=== PATIENT | female | born 1945 | race Caucasian/White ===

== ENCOUNTER → 2016-11-30 | Outpatient (CLI) | payer OTHER, BC ==
[~2016-11-30] MED LIST: ASPI-428 PO; CALC-20 PO; CETI10TA84 PO; CHOL100010 PO; COEN100C11 PO; EPP3/2 IM; GLUC500C67 PO; HCTZ PO; IPRA1AER2 INH; IPRASOL4 INH; LEVO100T PO; MAGN250T22 PO; MOME200A INH; PRLSR20 PO; SALS500T10 PO; TRIA1SPR4 NAE
== END | disposition home or self-care (01) ==
LOC: C.LAB1850 16:11
PROVIDERS: ATTEND Internal Medicine Geriatric Medicine
DX: I10 Essential (primary) hypertension (principal); E03.9 Hypothyroidism, unspecified; J44.9 Chronic obstructive pulmonary disease, unspecified; E78.5 Hyperlipidemia, unspecified; R10.31 Right lower quadrant pain; R50.9 Fever, unspecified

== ENCOUNTER → 2017-02-26 | Outpatient (CLI) | payer OTHER, BC ==
--- NOTE | 2017-02-26 12:59 | DIAGNOSTIC IMAGING REPORT ---
CHEST 2 VIEWS ROUTINE CLINICAL HISTORY: COPD. Cough x1 week. COMPARISON STUDY: No previous studies for comparison. FINDINGS: The heart is at the upper limits of normal in size. There is mild elevation of the left hemidiaphragm. Increased left basal markings are likely atelectatic. There is no lobar consolidation. There are no pleural effusions. There is no failure.[ IMPRESSION: Elevation of the left hemidiaphragm with left basilar opacities, likely atelectatic. No evidence of lobar consolidation Electronically signed by: Jean Claude Armenta M.D. 02/26/2017 12:58 PM Dictated Date/Time: 02/26/2017 12:56 PM
== END | disposition home or self-care (01) ==
LOC: C.LABBC 12:13
PROVIDERS: ATTEND Physician Assistant Medical
DX: J20.9 Acute bronchitis, unspecified (principal); J44.9 Chronic obstructive pulmonary disease, unspecified

== ENCOUNTER → 2017-04-03 | Outpatient (CLI) | payer OTHER, BC | END | disposition home or self-care (01) | LOC: C.LABSPEC 17:16 | PROVIDERS: ATTEND Nurse Practitioner Family | DX: R31.0 Gross hematuria (principal) ==

== ENCOUNTER → 2017-04-12 | Outpatient (CLI) | payer OTHER, BC ==
[2017-04-12 17:00] LABS: BLOOD UREA NITROGEN 24 mg/dl (7-18); BUN/CREATININE RATIO 31.3 (10-20); CREATININE 0.78 mg/dl (0.60-1.20)
== END | disposition home or self-care (01) ==
LOC: C.LAB 15:15
PROVIDERS: ATTEND Nurse Practitioner Family
DX: R30.0 Dysuria (principal); R35.0 Frequency of micturition; R31.9 Hematuria, unspecified

== ENCOUNTER → 2017-04-20 | Outpatient (CLI) | payer OTHER, BC ==
[~2017-04-20] MED LIST changes: +MethylPREDNISolone HOME PACK 16 MG TAB PO SCH; +OPTIRAY 320 IV PRN
--- NOTE | 2017-04-20 13:33 | DIAGNOSTIC IMAGING REPORT ---
CT UROGRAM CLINICAL HISTORY: Gross hematuria. COMPARISON STUDY: No priors. TECHNIQUE: Before and following the IV administration of 4. cc of Optiray 320, CT urogram of the abdomen and pelvis is performed from the lung bases to the proximal femora. Images are reviewed in the axial, sagittal, and coronal planes. IV contrast was administered without complication. CT DOSE: 780.88 mGy.cm FINDINGS: Lung bases: The heart is normal in size and without pericardial effusion. Emphysema is noted. A calcified granuloma is seen in the right lower lobe. No airspace consolidation or pleural effusion is identified. There is elevation of left hemidiaphragm with left basilar atelectasis. The right breast is presumed surgically absent. Liver: The contrast-enhanced liver is normal in size, contour, and attenuation. There is minimal central intrahepatic biliary ductal dilatation. The hepatic veins and portal veins are patent. Gallbladder: Surgically absent noting clips in the gallbladder fossa. Spleen: Normal in size and attenuation. Pancreas: Atrophic and grossly unremarkable. Adrenal glands: Unremarkable. Kidneys and ureters: The contrast enhanced kidneys demonstrate cortical atrophy and are without hydronephrosis. There are no renal calculi identified on the unenhanced images. The kidneys enhance and excrete symmetrically. There is no enhancing renal cortical mass lesion identified. There is no evidence of urothelial lesion within the renal pelvis bilaterally or along the course of either ureter. Abdominal vasculature: The abdominal aorta is normal in course and caliber noting moderate atherosclerotic calcification. Bowel: The small bowel and colon are normal in course and caliber. There are scattered colonic diverticula without CT evidence of acute diverticulitis. A small segment of the ventral wall of the transverse colon is contained within an umbilical hernia. The appendix is well-visualized and normal. Peritoneum: There is no intraperitoneal free air or abdominal ascites. Lymphadenopathy: None. Pelvic viscera: The bladder is normal as visualized. The uterus is surgically absent. No adnexal lesion is seen. Skeletal structures: The skeletal structures are osteopenic. There is moderate lumbosacral spondylosis. No lytic or blastic lesion are seen. IMPRESSION: 1. The kidneys demonstrate cortical atrophy and are without hydronephrosis. No renal calculi are identified. 2. There is no enhancing renal cortical mass, and no evidence of urothelial lesion within the renal pelvis bilaterally or along the course of the ureters. 3. The bladder is normal as visualized. 4. Emphysema. 5. Additional changes as above. Electronically signed by: Darrick Dejesus M.D. 04/20/2017 1:32 PM Dictated Date/Time: 04/20/2017 1:24 PM
== END | disposition home or self-care (01) ==
LOC: C.CTS 12:44
PROVIDERS: ATTEND Nurse Practitioner Family
DX: R31.0 Gross hematuria (principal); J43.9 Emphysema, unspecified

== ENCOUNTER → 2017-11-12 | Outpatient (CLI) | payer OTHER, BC ==
[~2017-11-12] MED LIST changes: -MethylPREDNISolone HOME PACK 16 MG TAB PO SCH; -OPTIRAY 320 IV PRN
== END | disposition home or self-care (01) ==
LOC: C.MAMM 13:12
PROVIDERS: ATTEND Internal Medicine Geriatric Medicine
DX: R29.890 Loss of height (principal); M85.852 Other specified disorders of bone density and structure, left thigh; M85.851 Other specified disorders of bone density and structure, right thigh

== ENCOUNTER 2021-01-05 17:01 | Observation (INO) ==
[2021-01-05] MEDS ORDERED: ASPIRIN CHEW 324 MG PO STA (17:30)
[2021-01-05] MEDS ORDERED: NITROGLYCERIN 2% OINTMENT 30GM TUBE EXT STA (17:30)
--- NOTE | 2021-01-05 17:35 | Emergency Department Note ---
History of Present Illness General Chief complaint: Chest Pain Stated complaint: CHEST PAIN Time Seen by Provider: 01/05/21 17:19 Source: patient History of Present Illness Provider complaint: Chest pain Onset (ago): day(s) 1 Location: chest Radiation: extremity (Left arm) Pain Consistency: + intermittent Maximum Pain Intensity: 1 Quality: + other (Heaviness) Relieved By: + rest Exacerbated By: + other (Exertion) Associated symptoms: no cough, no diaphoresis, no fever/chills, no headaches, no nausea/vomiting and no shortness of breath This is a 75-year-old female who presents with chest discomfort intermittently since last night. Patient describes it as a heaviness in the middle of her chest with radiation to her left arm. No associated shortness of breath or diaphoresis or nausea. She states that it started after she was cleaning her house. She got better with rest. Today she had several more episodes starting in the morning. She states that it came on with exertion and got better with r est. She went to her doctor's office who sent her here for further evaluation. She does not have any chest discomfort at this time. She states that when she lies down she feels fine. She did notice that her blood pressure was elevated today over 200 systolic when she had the chest heaviness this morning. She is on antihypertensive medication and has taking them regularly. She denies any leg swelling or pain, fever, cough or cold symptoms, vomiting, abdominal pain, diarrhea or urinary symptoms or known exposure to COVID-19. She does state that her brother had 3 heart attacks under the age of 50 and her father had a heart attack in his 70s. She did have a negative stress test several years ago. Home Medications Medication Instructions Recorded Confirmed Type antiarthritic combination no.2 900 900 mg PO DAILY tab 07/03/19 01/05/21 History mg tablet bimatoprost 0.01 % eye drops 1 drops OP QPM 07/03/19 01/05/21 History calcium carbonate 600 mg calcium 600 mg PO BID tab 07/03/19 01/05/21 History (1,500 mg) tablet cetirizine 10 mg capsule 10 mg PO DAILY cap 07/03/19 01/05/21 History cholecalciferol (vitamin D3) 25 1,000 units PO DAILY 07/03/19 01/05/21 History mcg (1,000 unit) capsule magnesium 250 mg tablet 250 mg PO DAILY 07/03/19 01/05/21 History triamcinolone acetonide 55 mcg 1 sprays INTNAS DAILY 07/03/19 01/05/21 History nasal spray aerosol albuterol sulfate 90 mcg/actuation 2 puffs INH Q6H PRN #18 gm 12/29/19 01/05/21 Rx aerosol inhaler budesonide-formoterol HFA 80 2 puffs INH BID #3 inhaler 02/26/20 01/05/21 Rx mcg-4.5 mcg/actuation aerosol inhaler hydrochlorothiazide 25 mg tablet 25 mg PO DAILY #90 tab 04/21/20 01/05/21 Rx epinephrine 0.3 mg/0.3 mL 0.3 mg IM Q10M PRN #2 ea 05/20/20 01/05/21 Rx injection, auto-injector pravastatin 20 mg tablet 20 mg PO DAILY #90 tab 05/24/20 01/05/21 Rx levothyroxine 100 mcg tablet 100 mcg PO DAILY #90 tab 06/01/20 01/05/21 Rx irbesartan 150 mg tablet 150 mg PO DAILY #90 tab 06/08/20 01/05/21 Rx coenzyme Q10 100 mg capsule 100 mg PO BID cap 07/12/20 01/05/21 History ketoconazole 2 % topical cream 1 appln TOP BID PRN 07/12/20 01/05/21 History ipratropium 0.5 mg-albuterol 3 mg 3 ml INH QID PRN ml 10/06/20 01/05/21 History (2.5 mg base)/3 mL nebulization soln meloxicam 7.5 mg tablet 7.5 mg PO DAILY PRN #20 tab 10/06/20 01/05/21 Rx omeprazole 20 mg capsule,delayed 20 mg PO DAILY #90 cap 10/25/20 01/05/21 Rx release Allergies Allergy/AdvReac Type Severity Reaction Status Date / Time hornet venom Allergy Severe ANAPHYLAXIS Verified 01/05/21 15:19 nalbuphine Allergy Severe "CAN'T Verified 01/05/21 15:19 BREATH" venom-honey bee Allergy Severe Anaphylaxis Verified 01/05/21 15:19 amoxicillin Allergy Intermediate VASCULITIS Verified 01/05/21 15:19 ampicillin Allergy Intermediate VASCULITIS Verified 01/05/21 15:19 clavulanic acid Allergy Intermediate VASCULITIS Verified 01/05/21 15:19 LEGS Iodinated Contrast Media Allergy Intermediate Hives Verified 01/05/21 15:19 Penicillins Allergy Intermediate VASCULITIS Verified 01/05/21 15:19 LEGS, AMOXIL-RASH latex Allergy Rash Unverified 01/05/21 20:09 Past Med/Surg History Medical History (Updated 01/05/21 @ 22:49 by Marc Peacock MD) Allergic rhinitis Asthma Dyslipidemia Generalized osteoarthritis GERD (gastroesophageal reflux disease) Glaucoma Headache, migraine History of paroxysmal supraventricular tachycardia HTN (hypertension) Hx of malignant neoplasm of female breast Hypothyroidism Osteoporosis 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 PFTs (04/11) demonstrated moderate restriction without improvement after bronchodilators Scoliosis Urinary incontinence Surgical History History of arthroscopy of knee with lysis of adhesions History of cholecystectomy 1990s History of hysterectomy History of hysterectomy with bilateral oophorectomy for uterine prolapse, concurrent pelvic floor repair History of mastectomy modified radical mastectomy right breast History of Mohs micrographic surgery for skin cancer nose History of tonsillectomy and adenoidectomy History of tubal ligation Family History Grandmother (Maternal) Breast cancer Father Myocardial infarction Coronary heart disease Cardiac disorder Cancer Brother Myocardial infarction Deep vein thrombosis Cardiac disorder Hypertension Mother Coronary heart disease Cardiac disorder Hypertension Cancer Denies family history of Ovarian cancer Prostate cancer Lung cancer Colorectal cancer Stroke Social History Smoking Status: Never smoker Second Hand Exposure: No; Hx Alcohol Use: Yes Hx Substance Use: No Preferred Language: Nigerian Communication Ability: Effective Visual Impairment: Limited Hearing Ability: Normal Etcher Enameling Required: No Beliefs That Will Affect Care: None marital status: Current Living Situation: Spouse and Family Current Living Situation Comment: Lives with and grandson current occupational status: retired Feels Safe at Home: Yes Childhood Exposure to Second-Hand Smoke: Yes caffeine: Yes Dental Care, Regularly: Yes Physical Activity Frequency: 1-2 Times per Week Seatbelt Use: always Sunscreen Use: Yes Assistive Devices: Glasses Review of Systems See HPI for pertinent positives & negatives. and A total of 10 systems reviewed and were otherwise negative Physical Exam Vital Signs Vital Signs - 24 hr 01/05/21 17:03 01/05/21 17:50 01/05/21 18:46 Temperature 36.1 C L Temperature Source Temporal Artery Scan Pulse Rate 90 71 Pulse Rate [Apical] Respiratory Rate 18 19 Blood Pressure 190/109 H 166/97 H Blood Pressure [Left Arm] Blood Pressure Mean 136 120 Blood Pressure Mean [Left Arm] Pulse Oximetry 95 95 Oxygen Delivery Method Room Air Room Air Sepsis Recent Fever Within 48 Hours No Sepsis New/Unexplained Change in Mental Status N/A Sepsis Action Taken by Nursing No Action Required 01/05/21 18:48 01/05/21 19:00 Temperature Temperature Source Pulse Rate 69 Pulse Rate [Apical] 70 Respiratory Rate 18 17 Blood Pressure Blood Pressure [Left Arm] 166/97 H Blood Pressure Mean Blood Pressure Mean [Left Arm] 120 Pulse Oximetry 96 Oxygen Delivery Method Room Air Sepsis Recent Fever Within 48 Hours Sepsis New/Unexplained Change in Mental Status Sepsis Action Taken by Nursing Constitutional: Vital signs reviewed. Eyes: Pupils are equal round reactive to light. Conjunctiva are noninjected. ENT: Pharynx is clear without erythema or exudate. Mucous membranes are moist. Neck supple without meningeal signs. Respiratory: Clear to auscultation bilaterally. Breath sounds are equal bilaterally. Cardiovascular: Regular rate and rhythm. No rubs or gallops. GI: Soft, nondistended and nontender. Bowel sounds are present. Musculoskeletal: No peripheral edema. No lower extremity tenderness. Integumentary: No cyanosis. or jaundice. Neurological: The patient is awake and alert. No focal deficits. Psychiatric: Normal affect. Not anxious appearing. Course Administered Medications Discontinued Medications Aspirin (Aspirin Chew 324 Mg) 324 mg PO NOW STA Stop: 01/05/21 17:31 Last Admin: 01/05/21 17:57 Dose: 324 mg Documented by: [id number] Nitroglycerin (Nitroglycerin 2% Ointment 30gm Tube) 0.5 inch EXT NOW STA Stop: 01/05/21 17:31 Last Admin: 01/05/21 17:58 Dose: 0.5 inch Documented by: [id number] Medical Decision Making Differential Diagnosis Unstable angina, [place], pleurisy, pneumonia, GERD Medical Records Attestation: I reviewed the patient's medical records. I did perform a limited focused review of portions of the patient's old chart on the electronic medical record. The patient was seen by her primary care provider earlier today and sent here for evaluation of exertional chest pain. Home Medications Current Medication List: was personally reviewed by me Laboratory Data Attestation: I reviewed the patient's lab results. Result diagrams: 01/05/21 17:35 01/05/21 17:35 Lab Results 01/05/21 01/05/21 01/05/21 Range/Units 17:35 17:35 17:35 WBC 5.54 (4.8-10.8) K/uL RBC 4.74 (4.2-5.4) M/uL Hgb 13.6 (12.0-16.0) g/dL Hct 41.7 (37-47) % MCV 88.0 (80-100) fL MCH 28.7 (25-34) pg MCHC 32.6 (32-36) g/dL RDW Std Deviation 45.5 (36.4-46.3) fL RDW Coeff of Patrice 14.1 (11.5-14.5) % Plt Count 236 (130-400) K/uL MPV 9.9 (7.4-10.4) fL Immature Gran % (Auto) 0.2 % Neut % (Auto) 66.2 % Lymph % (Auto) 20.8 % [place] % (Auto) 9.4 % Eos % (Auto) 2.9 % Baso % (Auto) 0.5 % Neut # (Auto) 3.67 (1.4-6.5) K/uL Lymph # (Auto) 1.15 L (1.2-3.4) K/uL [place] # (Auto) 0.52 (0.11-0.59) K/uL Eos # (Auto) 0.16 (0-0.5) K/uL Baso # (Auto) 0.03 (0-0.2) K/uL Immature Gran # (Auto) 0.01 (0.00-0.02) K/uL PT 10.3 (9.0-12.0) Seconds INR 1.0 (0.9-1.1) APTT 26.9 (21.0-31.0) Seconds PTT Ratio 1.0 Sodium 137 (136-145) mmol/L Potassium 3.6 (3.5-5.1) mmol/L Chloride 104 (98-107) mmol/L Carbon Dioxide 29 (21-32) mmol/L Anion Gap 4.0 (3-11) BUN 19 H (7-18) mg/dl Creatinine 0.82 (0.6-1.2) mg/dl Est Cr Clr Drug Dosing 59.6 ml/min Est GFR ( Amer) 80.0 Est GFR (Non-Af Amer) 69.0 BUN/Creatinine Ratio 22.8 H (10-20) Glucose 109 H (70-99) mg/dl Calcium 9.1 (8.5-10.1) mg/dl Total Bilirubin 0.3 (0.2-1) mg/dl AST 15 (15-37) U/L ALT 34 (12-78) U/L Alkaline Phosphatase 84 (45-117) U/L Troponin I < 0.015 (0-0.045) ng/ml Total Protein 7.7 (6.4-8.2) gm/dl Albumin 3.6 (3.4-5.0) gm/dl Globulin 4.1 H (2.5-4.0) gm/dl Albumin/Globulin Ratio 0.9 (0.9-2) COVID-19 Eval Order SARS-CoV-2, RNA, NAAT (NEGATIVE) 01/05/21 01/05/21 Range/Units 19:22 19:22 WBC (4.8-10.8) K/uL RBC (4.2-5.4) M/uL Hgb (12.0-16.0) g/dL Hct (37-47) % MCV (80-100) fL MCH (25-34) pg MCHC (32-36) g/dL RDW Std Deviation (36.4-46.3) fL RDW Coeff of Patrice (11.5-14.5) % Plt Count (130-400) K/uL MPV (7.4-10.4) fL Immature Gran % (Auto) % Neut % (Auto) % Lymph % (Auto) % [place] % (Auto) % Eos % (Auto) % Baso % (Auto) % Neut # (Auto) (1.4-6.5) K/uL Lymph # (Auto) (1.2-3.4) K/uL [place] # (Auto) (0.11-0.59) K/uL Eos # (Auto) (0-0.5) K/uL Baso # (Auto) (0-0.2) K/uL Immature Gran # (Auto) (0.00-0.02) K/uL PT (9.0-12.0) Seconds INR (0.9-1.1) APTT (21.0-31.0) Seconds PTT Ratio Sodium (136-145) mmol/L Potassium (3.5-5.1) mmol/L Chloride (98-107) mmol/L Carbon Dioxide (21-32) mmol/L Anion Gap (3-11) BUN (7-18) mg/dl Creatinine (0.6-1.2) mg/dl Est Cr Clr Drug Dosing ml/min Est GFR ( Amer) Est GFR (Non-Af Amer) BUN/Creatinine Ratio (10-20) Glucose (70-99) mg/dl Calcium (8.5-10.1) mg/dl Total Bilirubin (0.2-1) mg/dl AST (15-37) U/L ALT (12-78) U/L Alkaline Phosphatase (45-117) U/L Troponin I (0-0.045) ng/ml Total Protein (6.4-8.2) gm/dl Albumin (3.4-5.0) gm/dl Globulin (2.5-4.0) gm/dl Albumin/Globulin Ratio (0.9-2) COVID-19 Eval Order Covid19 [facility] SARS-CoV-2, RNA, NAAT NEGATIVE (NEGATIVE) Imaging Data Radiologist's Impression: XR chest 1V portable HISTORY: Atypical Chest Pain COMPARISON: Chest 02/26/2017. FINDINGS: Chronic elevation of the left hemidiaphragm, unchanged. No focal lung consolidations to suggest pneumonia. No evidence for pulmonary edema. The cardiac silhouette remains mildly enlarged. No pleural effusions. No pneumothorax. IMPRESSION: 1. No change in the chronic elevation of the left hemidiaphragm and mild cardiomegaly. 2. No acute process within the chest. ACT 112: Negative or not required by law. Electronically signed by: Jonas Hall M.D. 01/05/2021 5:52 PM ECG Data Attestation: I personally reviewed and interpreted this ECG as follows: Indication: + chest pain Rate (beats per minute): 69 Rhythm: + normal sinus ECG [place]: + Normal ECG ST segments: no ST elevation ECG Findings: + Other (Motion artifact in lead V5); no PVCs Comparison ECG Date: from (July 17, 2015) Change: no significant change MDM Narrative I did evaluate the patient as noted above. The patient is presenting with exertional chest pain since yesterday. She is currently chest pain-free. IV access was established. I did treat her with nitroglycerin paste as well as aspirin. I did place an order for continuous cardiac monitoring. The monitor showed normal sinus rhythm at a rate of 68 bpm. I did order and personally review the patient's 12-lead EKG as described above. She has no acute ischemic changes. I did order and personally reviewed the images of the patient's chest x-ray as described above. There is no evidence of acute abnormality. I did order and review the patient's blood work as noted in the electronic medical record. CBC and electrolytes are unremarkable. Troponin is negative. I did discuss the test results with the patient. I did recommend hospitalization for repeat cardiac biomarkers and possible stress testing tomorrow. I did discuss the case with the hospitalist and insurance case manager.Covid screening is negative. Impression & Plan Chest pain, exertional, Poorly-controlled hypertension Discharge Plan Visit Data Chief Complaint: Chest Pain Stated Complaint: CHEST PAIN ED Provider: Marc Peacock Discharge Problem: Chest pain, exertional, Poorly-controlled hypertension Patient Disposition: Admitted As Inpatient Discharge Instructions Interventions: ED Discharge Assessment Last Done: 01/05/21 21:18
[2021-01-05 17:49] LABS: Basophils # (auto) 0.03 K/uL (0-0.2); Basophils % (auto) 0.5 %; Eosinophils # (auto) 0.16 K/uL (0-0.5); Eosinophils % (auto) 2.9 %; Hematocrit (blood only) 41.7 % (37-47); Hemoglobin 13.6 g/dL (12.0-16.0); Immature Granulocytes # (auto) 0.01 K/uL (0.00-0.02); Immature Granulocytes % (auto) 0.2 %; Lymphocytes # (auto) 1.15 K/uL (1.2-3.4); Lymphocytes % (auto) 20.8 %; Mean Corpuscular Hemoglobin 28.7 pg (25-34); Mean Corpuscular Hgb Conc 32.6 g/dL (32-36); Mean Platelet Volume 9.9 fL (7.4-10.4); Monocytes # (auto) 0.52 K/uL (0.11-0.59); Monocytes % (auto) 9.4 %; Neutrophils # (auto) 3.67 K/uL (1.4-6.5); Neutrophils % (auto) 66.2 %; Platelet Count 236 K/uL (130-400); RDW Coefficient of Variation 14.1 % (11.5-14.5); RDW Standard Deviation 45.5 fL (36.4-46.3); Red Blood Count 4.74 M/uL (4.2-5.4); White Blood Count 5.54 K/uL (4.8-10.8)
--- NOTE | 2021-01-05 17:53 | XRay Report ---
XR chest 1V portable HISTORY: Atypical Chest Pain COMPARISON: Chest 02/26/2017. FINDINGS: Chronic elevation of the left hemidiaphragm, unchanged. No focal lung consolidations to sug gest pneumonia. No evidence for pulmonary edema. The cardiac silhouette remains mildly enlarged. No p leural effusions. No pneumothorax. IMPRESSION: 1. No change in the chronic elevation of the left hemidiaphragm and mild cardiomegaly. 2. No acute process within the chest. ACT 112: Negative or not required by law. Electronically signed by: Jonas Hall M.D. 01/05/2021 5:52 PM
[2021-01-05 18:14] LABS: Alanine Aminotransferase 34 U/L (12-78); Albumin Level 3.6 gm/dl (3.4-5.0); Aspartate Aminotransferase 15 U/L (15-37); BUN Creatinine Ratio 22.8 (10-20); Blood Urea Nitrogen 19 mg/dl (7-18); Calcium 9.1 mg/dl (8.5-10.1); Carbon Dioxide 29 mmol/L (21-32); Chloride 104 mmol/L (98-107); Creatinine Clr Calc Pharmacy 59.6 ml/min; Glucose 109 mg/dl (70-99); Potassium 3.6 mmol/L (3.5-5.1); Sodium 137 mmol/L (136-145)
[2021-01-05 18:18] LABS: Albumin Globulin Ratio 0.9 (0.9-2); Alkaline Phosphatase 84 U/L (45-117); Bilirubin,Total 0.3 mg/dl (0.2-1); Globulin 4.1 gm/dl (2.5-4.0); Total Protein 7.7 gm/dl (6.4-8.2); Troponin I < 0.015 ng/ml (0-0.045)
[2021-01-05 19:09] LABS: Partial Thromboplastin Time 26.9 Seconds (21.0-31.0); Prothrombin Time 10.3 Seconds (9.0-12.0)
--- NOTE | 2021-01-05 20:09 | History & Physical Report ---
Date of Service January 05, 2021 Assessment & Plan (1) Chest pain: 75yo female with history of HTN, HLP, family history of premature CAD presenting with exertional chest discomfort x 2 days. Troponin x 1 negative, EKG with nonspecific ST flattening -Observation to medical with telemetry -Trend troponin q 8 hours x 3 -ASA 81mg po daily -Nitro PRN chest pain -Exercise stress test ordered for AM - patient states she has done the exercise tests in the past and thinks she will be able to walk without difficulty Present on Admission?: Yes (2) HTN (hypertension): Blood pressure elevated on arrival, has since improved however still high at 166/97 -Continue Irbesartan 150mg po daily -Continue HCTZ 25mg po daily -Continue to monitor Present on Admission?: Yes (3) Dyslipidemia: Chronic -Check fasting lipid panel in AM -Continue Pravastatin 20mg po daily -Continue CoQ10 Present on Admission?: Yes (4) Restrictive lung disease: Patient with left diaphragm paralysis following XRT for breast cancer in the past. No respiratory complaints. Breathing comfortably on room air -Continue Ipratropium/Albuterol -Continue Budesonide-Formoterol -Continue Albuterol Present on Admission?: Yes (5) Hypothyroidism: Chronic. Stable -Continue Synthyroid 100mcg po daily Present on Admission?: Yes (6) GERD (gastroesophageal reflux disease): Chronic. Stable. Patient with hiatal hernia as well. Presently with no complaints re: this issue -Continue Omeprazole 20mg po daily F/E/N - Heplock. Monitor electrolytes and replete as needed, continue home Vitamin D, Heart healthy diet as tolerated Ppx - Low risk for DVT - encourage ambulation Code - Full Dispo - Observation to medical with telemetry Present on Admission?: Yes History of Present Illness Chief Complaint: chest pain Primary Care Provider: Ariel Mason DO Luciana Weiner is a 75yo female presenting with exertional chest discomfort. Discomfort started yesterday afternoon after patient was vacuuming her house. She had left sided chest pressure 3/10 in severity with radiation down her left arm. She sat down to rest and her pain resolved after appx 10 minutes. This morning she woke up feeling well and decided to check her blood pressure which was found to be 200 systolic. She took her blood pressure medications early and after a few hours her blood pressure improved to 116/70. She had recurrence of her chest discomfort later in the day described as intermittent left sided chest heaviness with radiation down the left arm that occurred with exertion. Pain 4/10 in severity. No palpitations, diaphoresis, dizziness associate with discomfort. Presently chest pain free. She has family history of premature CAD -[place] x 2 in brother in his 40's as well as HTN/HLP. She reports having a stress test several years ago which was unremarkable. No prior cardiac catheterizations or stents. ER Course: ASA, Nitro Allergies Allergy/AdvReac Type Severity Reaction Status Date / Time hornet venom Allergy Severe ANAPHYLAXIS Verified 01/05/21 15:19 nalbuphine Allergy Severe "CAN'T Verified 01/05/21 15:19 BREATH" venom-honey bee Allergy Severe Anaphylaxis Verified 01/05/21 15:19 amoxicillin Allergy Intermediate VASCULITIS Verified 01/05/21 15:19 ampicillin Allergy Intermediate VASCULITIS Verified 01/05/21 15:19 clavulanic acid Allergy Intermediate VASCULITIS Verified 01/05/21 15:19 LEGS Iodinated Contrast Media Allergy Intermediate Hives Verified 01/05/21 15:19 Penicillins Allergy Intermediate VASCULITIS Verified 01/05/21 15:19 LEGS, AMOXIL-RASH Home Medications Medication Instructions Recorded Confirmed Type antiarthritic combination no.2 900 mg PO tab 07/03/19 01/05/21 History mg tablet bimatoprost 0.01 % eye drops 1 drops OP QPM 07/03/19 01/05/21 History calcium carbonate 600 mg calcium 600 mg PO BID tab 07/03/19 01/05/21 History (1,500 mg) tablet cetirizine 10 mg capsule 10 mg PO DAILY cap 07/03/19 01/05/21 History cholecalciferol (vitamin D3) 25 1,000 units PO DAILY 07/03/19 01/05/21 History mcg (1,000 unit) capsule magnesium 250 mg tablet 250 mg PO DAILY 07/03/19 01/05/21 History triamcinolone acetonide 55 mcg 1 sprays INTNAS DAILY 07/03/19 01/05/21 History nasal spray aerosol albuterol sulfate 90 mcg/actuation 2 puffs INH Q6H PRN #18 gm 12/29/19 01/05/21 Rx aerosol inhaler budesonide-formoterol HFA 80 2 puffs INH BID #3 inhaler 02/26/20 01/05/21 Rx mcg-4.5 mcg/actuation aerosol inhaler hydrochlorothiazide 25 mg tablet 25 mg PO DAILY #90 tab 04/21/20 01/05/21 Rx epinephrine 0.3 mg/0.3 mL 0.3 mg IM Q10M PRN #2 ea 05/20/20 01/05/21 Rx injection, auto-injector pravastatin 20 mg tablet 20 mg PO DAILY #90 tab 05/24/20 01/05/21 Rx levothyroxine 100 mcg tablet 100 mcg PO DAILY #90 tab 06/01/20 01/05/21 Rx irbesartan 150 mg tablet 150 mg PO DAILY #90 tab 06/08/20 01/05/21 Rx coenzyme Q10 100 mg capsule 100 mg PO BID cap 07/12/20 01/05/21 History ketoconazole 2 % topical cream 1 appln TOP BID PRN 07/12/20 01/05/21 History ipratropium 0.5 mg-albuterol 3 mg 3 ml INH QID PRN ml 10/06/20 01/05/21 History (2.5 mg base)/3 mL nebulization soln meloxicam 7.5 mg tablet 7.5 mg PO DAILY PRN #20 tab 10/06/20 01/05/21 Rx omeprazole 20 mg capsule,delayed 20 mg PO DAILY #90 cap 10/25/20 01/05/21 Rx release Past Med/Surg History Medical History (Updated 01/05/21 @ 20:06 by Yaneli Harrison DO) Allergic rhinitis Asthma Dyslipidemia Generalized osteoarthritis GERD (gastroesophageal reflux disease) Glaucoma Headache, migraine History of paroxysmal supraventricular tachycardia HTN (hypertension) Hx of malignant neoplasm of female breast Hypothyroidism Osteoporosis 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 PFTs (04/11) demonstrated moderate restriction without improvement after bronchodilators Scoliosis Urinary incontinence Surgical History History of arthroscopy of knee with lysis of adhesions History of cholecystectomy 1990s History of hysterectomy History of hysterectomy with bilateral oophorectomy for uterine prolapse, concurrent pelvic floor repair History of mastectomy modified radical mastectomy right breast History of Mohs micrographic surgery for skin cancer nose History of tonsillectomy and adenoidectomy History of tubal ligation Family History Grandmother (Maternal) Breast cancer Father Myocardial infarction Coronary heart disease Cardiac disorder Cancer Brother Myocardial infarction Deep vein thrombosis Cardiac disorder Hypertension Mother Coronary heart disease Cardiac disorder Hypertension Cancer Denies family history of Ovarian cancer Prostate cancer Lung cancer Colorectal cancer Stroke Social History Smoking Status: Never smoker Second Hand Exposure: No; Hx Alcohol Use: Yes Hx Substance Use: No Preferred Language: Hebrew Communication Ability: Effective Visual Impairment: Limited Hearing Ability: Normal Winder Hand Required: No marital status: Current Living Situation: Spouse current occupational status: retired Feels Safe at Home: Yes Childhood Exposure to Second-Hand Smoke: Yes caffeine: Yes Dental Care, Regularly: Yes Physical Activity Frequency: 1-2 Times per Week Seatbelt Use: always Sunscreen Use: Yes Review of Systems Review of Systems: All systems reviewed & are unremarkable except as noted in HPI & below Patient denies fever, chills, cough, SOB, nausea, vomiting, diarrhea, constipation Physical Exam Physical Exam: General: patient resting comfortably, NAD, non-toxic in appearance, AA&O x 4 Skin: warm, dry, intact, no rashes or lesions HEENT: NC/AT, PERRL, EOMI, anicteric sclera, conjunctiva without injection, external ear normal to inspection and nontender, nares patent, moist mucus membranes, dentition intact, no oropharyngeal lesions, neck supple, trachea midline, no LAD, no thyromegaly, no JVD Heart: +S1/S2, regular, no m/r/g Lungs: equal air entry bilaterally, no rales/rhonchi/wheezes Abd: +BS, soft, NT/ND, no masses/organomegaly/ascites Ext: warm, 2+ pulses in UE/LE bilaterally, no clubbing/cyanosis or edema Neuro: nonfocal, patient AA&O x 4, speech intact, no facial droop, moving all extremities on command with equal strength 5/5 Results & Data Results & Data ([facility]) Vital Signs (Past 12 Hours) Vital Signs Temp Pulse Pulse Resp BP BP Pulse Ox 01/05/21 19:00 69 17 01/05/21 18:48 70 18 166/97 H 96 01/05/21 18:46 71 19 166/97 H 01/05/21 17:50 95 01/05/21 17:03 36.1 C L 90 18 190/109 H 95 Laboratory Results Lab Results 01/05/21 01/05/21 01/05/21 Range/Units 17:35 17:35 17:35 WBC 5.54 (4.8-10.8) K/uL RBC 4.74 (4.2-5.4) M/uL Hgb 13.6 (12.0-16.0) g/dL Hct 41.7 (37-47) % MCV 88.0 (80-100) fL MCH 28.7 (25-34) pg MCHC 32.6 (32-36) g/dL RDW Std Deviation 45.5 (36.4-46.3) fL RDW Coeff of Patrice 14.1 (11.5-14.5) % Plt Count 236 (130-400) K/uL MPV 9.9 (7.4-10.4) fL Immature Gran % (Auto) 0.2 % Neut % (Auto) 66.2 % Lymph % (Auto) 20.8 % Graham % (Auto) 9.4 % Eos % (Auto) 2.9 % Baso % (Auto) 0.5 % Neut # (Auto) 3.67 (1.4-6.5) K/uL Lymph # (Auto) 1.15 L (1.2-3.4) K/uL Graham # (Auto) 0.52 (0.11-0.59) K/uL Eos # (Auto) 0.16 (0-0.5) K/uL Baso # (Auto) 0.03 (0-0.2) K/uL Immature Gran # (Auto) 0.01 (0.00-0.02) K/uL PT 10.3 (9.0-12.0) Seconds INR 1.0 (0.9-1.1) APTT 26.9 (21.0-31.0) Seconds PTT Ratio 1.0 Sodium 137 (136-145) mmol/L Potassium 3.6 (3.5-5.1) mmol/L Chloride 104 (98-107) mmol/L Carbon Dioxide 29 (21-32) mmol/L Anion Gap 4.0 (3-11) BUN 19 H (7-18) mg/dl Creatinine 0.82 (0.6-1.2) mg/dl Est Cr Clr Drug Dosing 59.6 ml/min Est GFR ( Amer) 80.0 Est GFR (Non-Af Amer) 69.0 BUN/Creatinine Ratio 22.8 H (10-20) Glucose 109 H (70-99) mg/dl Calcium 9.1 (8.5-10.1) mg/dl Total Bilirubin 0.3 (0.2-1) mg/dl AST 15 (15-37) U/L ALT 34 (12-78) U/L Alkaline Phosphatase 84 (45-117) U/L Troponin I < 0.015 (0-0.045) ng/ml Total Protein 7.7 (6.4-8.2) gm/dl Albumin 3.6 (3.4-5.0) gm/dl Globulin 4.1 H (2.5-4.0) gm/dl Albumin/Globulin Ratio 0.9 (0.9-2) COVID-19 Eval Order SARS-CoV-2, RNA, NAAT (NEGATIVE) 01/05/21 01/05/21 Range/Units 19:22 19:22 WBC (4.8-10.8) K/uL RBC (4.2-5.4) M/uL Hgb (12.0-16.0) g/dL Hct (37-47) % MCV (80-100) fL MCH (25-34) pg MCHC (32-36) g/dL RDW Std Deviation (36.4-46.3) fL RDW Coeff of Patrice (11.5-14.5) % Plt Count (130-400) K/uL MPV (7.4-10.4) fL Immature Gran % (Auto) % Neut % (Auto) % Lymph % (Auto) % Graham % (Auto) % Eos % (Auto) % Baso % (Auto) % Neut # (Auto) (1.4-6.5) K/uL Lymph # (Auto) (1.2-3.4) K/uL Graham # (Auto) (0.11-0.59) K/uL Eos # (Auto) (0-0.5) K/uL Baso # (Auto) (0-0.2) K/uL Immature Gran # (Auto) (0.00-0.02) K/uL PT (9.0-12.0) Seconds INR (0.9-1.1) APTT (21.0-31.0) Seconds PTT Ratio Sodium (136-145) mmol/L Potassium (3.5-5.1) mmol/L Chloride (98-107) mmol/L Carbon Dioxide (21-32) mmol/L Anion Gap (3-11) BUN (7-18) mg/dl Creatinine (0.6-1.2) mg/dl Est Cr Clr Drug Dosing ml/min Est GFR ( Amer) Est GFR (Non-Af Amer) BUN/Creatinine Ratio (10-20) Glucose (70-99) mg/dl Calcium (8.5-10.1) mg/dl Total Bilirubin (0.2-1) mg/dl AST (15-37) U/L ALT (12-78) U/L Alkaline Phosphatase (45-117) U/L Troponin I (0-0.045) ng/ml Total Protein (6.4-8.2) gm/dl Albumin (3.4-5.0) gm/dl Globulin (2.5-4.0) gm/dl Albumin/Globulin Ratio (0.9-2) COVID-19 Eval Order Covid19 [facility] SARS-CoV-2, RNA, NAAT NEGATIVE (NEGATIVE) Diagnostic Findings Lab Results 01/05/21 01/05/21 01/05/21 Range/Units 17:35 17:35 17:35 WBC 5.54 (4.8-10.8) K/uL RBC 4.74 (4.2-5.4) M/uL Hgb 13.6 (12.0-16.0) g/dL Hct 41.7 (37-47) % MCV 88.0 (80-100) fL MCH 28.7 (25-34) pg MCHC 32.6 (32-36) g/dL RDW Std Deviation 45.5 (36.4-46.3) fL RDW Coeff of Patrice 14.1 (11.5-14.5) % Plt Count 236 (130-400) K/uL MPV 9.9 (7.4-10.4) fL Immature Gran % (Auto) 0.2 % Neut % (Auto) 66.2 % Lymph % (Auto) 20.8 % Graham % (Auto) 9.4 % Eos % (Auto) 2.9 % Baso % (Auto) 0.5 % Neut # (Auto) 3.67 (1.4-6.5) K/uL Lymph # (Auto) 1.15 L (1.2-3.4) K/uL Graham # (Auto) 0.52 (0.11-0.59) K/uL Eos # (Auto) 0.16 (0-0.5) K/uL Baso # (Auto) 0.03 (0-0.2) K/uL Immature Gran # (Auto) 0.01 (0.00-0.02) K/uL PT 10.3 (9.0-12.0) Seconds INR 1.0 (0.9-1.1) APTT 26.9 (21.0-31.0) Seconds PTT Ratio 1.0 Sodium 137 (136-145) mmol/L Potassium 3.6 (3.5-5.1) mmol/L Chloride 104 (98-107) mmol/L Carbon Dioxide 29 (21-32) mmol/L Anion Gap 4.0 (3-11) BUN 19 H (7-18) mg/dl Creatinine 0.82 (0.6-1.2) mg/dl Est Cr Clr Drug Dosing 59.6 ml/min Est GFR ( Amer) 80.0 Est GFR (Non-Af Amer) 69.0 BUN/Creatinine Ratio 22.8 H (10-20) Glucose 109 H (70-99) mg/dl Calcium 9.1 (8.5-10.1) mg/dl Total Bilirubin 0.3 (0.2-1) mg/dl AST 15 (15-37) U/L ALT 34 (12-78) U/L Alkaline Phosphatase 84 (45-117) U/L Troponin I < 0.015 (0-0.045) ng/ml Total Protein 7.7 (6.4-8.2) gm/dl Albumin 3.6 (3.4-5.0) gm/dl Globulin 4.1 H (2.5-4.0) gm/dl Albumin/Globulin Ratio 0.9 (0.9-2) COVID-19 Eval Order SARS-CoV-2, RNA, NAAT (NEGATIVE) 01/05/21 01/05/21 Range/Units 19:22 19:22 WBC (4.8-10.8) K/uL RBC (4.2-5.4) M/uL Hgb (12.0-16.0) g/dL Hct (37-47) % MCV (80-100) fL MCH (25-34) pg MCHC (32-36) g/dL RDW Std Deviation (36.4-46.3) fL RDW Coeff of Patrice (11.5-14.5) % Plt Count (130-400) K/uL MPV (7.4-10.4) fL Immature Gran % (Auto) % Neut % (Auto) % Lymph % (Auto) % Graham % (Auto) % Eos % (Auto) % Baso % (Auto) % Neut # (Auto) (1.4-6.5) K/uL Lymph # (Auto) (1.2-3.4) K/uL Graham # (Auto) (0.11-0.59) K/uL Eos # (Auto) (0-0.5) K/uL Baso # (Auto) (0-0.2) K/uL Immature Gran # (Auto) (0.00-0.02) K/uL PT (9.0-12.0) Seconds INR (0.9-1.1) APTT (21.0-31.0) Seconds PTT Ratio Sodium (136-145) mmol/L Potassium (3.5-5.1) mmol/L Chloride (98-107) mmol/L Carbon Dioxide (21-32) mmol/L Anion Gap (3-11) BUN (7-18) mg/dl Creatinine (0.6-1.2) mg/dl Est Cr Clr Drug Dosing ml/min Est GFR ( Amer) Est GFR (Non-Af Amer) BUN/Creatinine Ratio (10-20) Glucose (70-99) mg/dl Calcium (8.5-10.1) mg/dl Total Bilirubin (0.2-1) mg/dl AST (15-37) U/L ALT (12-78) U/L Alkaline Phosphatase (45-117) U/L Troponin I (0-0.045) ng/ml Total Protein (6.4-8.2) gm/dl Albumin (3.4-5.0) gm/dl Globulin (2.5-4.0) gm/dl Albumin/Globulin Ratio (0.9-2) COVID[facility]19 [facility], RNA, NAAT NEGATIVE (NEGATIVE) ECG Additional Comments: EKG with NSR at 69bpm, normal axis, FF=085, QRS=86, FDl=400, ST flattening Code Status & VTE Plan VTE Prophylaxis Plan VTE Prophylaxis will be ordered: Yes PG Care Time/CCT Total # of Minutes Spent Total Time Spent with Patient: Total time spent is greater than 50% in coordination of care (as documented) at patient's floor/unit and/or counseling patient: Coding Level of Care Code 13573 OBS Care - Level 3 Diagnoses Chest pain R07.9 Chest pain type: unspecified HTN (hypertension) I10 Hypertension type: essential hypertension Dyslipidemia E78.5 Restrictive lung disease J98.4 Hypothyroidism E03.9 Hypothyroidism type: unspecified GERD (gastroesophageal reflux disease) K21.9 Esophagitis presence: esophagitis presence not specified (1) Chest pain Chest pain type: unspecified Qualified Code(s): R07.9 - Chest pain, unspecified (2) HTN (hypertension) Hypertension type: essential hypertension Qualified Code(s): I10 - Essential (primary) hypertension (3) Hypothyroidism Hypothyroidism type: unspecified Qualified Code(s): E03.9 - Hypothyroidism, unspecified (4) GERD (gastroesophageal reflux disease) Esophagitis presence: esophagitis presence not specified Qualified Code(s): K21.9 - Gastro-esophageal reflux disease without esophagitis
[2021-01-05] MEDS ORDERED: ALBUT/IPRATROP 3MG/0.5MG NEB 3 ML VIAL INH PRN (21:53)
[2021-01-05] MEDS ORDERED: NITROGLYCERIN SL 0.4 MG/TAB TAB SL PRN (21:53)
[2021-01-05] MEDS ORDERED: ACETAMINOPHEN 325 MG TAB PO PRN (21:53)
[2021-01-05] MEDS ORDERED: ONDANSETRON INJ 2 MG/ML 2 ML VIAL IV PRN (21:53)
[2021-01-05] MEDS ORDERED: ALBUTEROL HFA 8 GM INHALER INH PRN (22:04)
[2021-01-05 23:13] LABS: Magnesium 2.3 mg/dl (1.8-2.4); Phosphorus 3.2 mg/dl (2.5-4.9); Troponin I < 0.015 ng/ml (0-0.045)
[2021-01-06] MEDS ORDERED: LEVOTHYROXINE SODIUM 100 MCG TABLET PO SCH (06:30)
--- NOTE | 2021-01-06 08:53 | Electrocardiogram Report ---
Test Reason : Blood Pressure : / mmHG Vent. Rate : 069 BPM Atrial Rate : 069 BPM P-R Int : 194 ms QRS Dur : 086 ms QT Int : 416 ms P-R-T Axes : -03 004 049 degrees QTc Int : 445 ms Poor data quality, interpretation may be adversely affected Normal sinus rhythm Normal ECG When compared with ECG of 17-JUL-2015 06:20, Criteria for Septal infarct are no longer Present Confirmed by Thomas Bellamy ([id number]) on 01/06/2021 8:53:28 AM Referred By: Ariel Mason Confirmed By:Thomas Bellamy
[2021-01-06] MEDS ORDERED: PANTOprazole 40 MG TAB PO SCH (09:00)
[2021-01-06] MEDS ORDERED: IRBESARTAN 150 MG TAB PO SCH (09:00)
[2021-01-06] MEDS ORDERED: PRAVASTATIN SOD 20 MG TAB PO SCH (09:00)
[2021-01-06] MEDS ORDERED: FLUTICASONE/VILANTEROL 100/25MCG 14 PUFFS/INHALER INH SCH (09:00)
[2021-01-06] MEDS ORDERED: CHOLECALCIFEROL 1,000 UNITS 25 MCG TAB PO SCH (09:00)
[2021-01-06] MEDS ORDERED: ASPIRIN 81 MG ECTAB PO SCH (09:00)
[2021-01-06] MEDS ORDERED: TRIAMCINOLONE ACET NASAL SPRAY 10.8ML BTL NAE SCH (09:00)
[2021-01-06] MEDS ORDERED: MAGNESIUM OXIDE 400 MG TAB PO SCH (09:00)
[2021-01-06] MEDS ORDERED: hydroCHLOROthiazide 25 MG TAB PO SCH (09:00)
--- NOTE | 2021-01-06 09:16 | Electrocardiogram Report ---
Test Reason : Blood Pressure : / mmHG Vent. Rate : 072 BPM Atrial Rate : 072 BPM P-R Int : 206 ms QRS Dur : 078 ms QT Int : 414 ms P-R-T Axes : 003 008 071 degrees QTc Int : 453 ms Normal sinus rhythm Normal ECG When compared with ECG of 05-JAN-2021 17:09, No significant change Confirmed by Thomas Bellamy ([id number]) on 01/06/2021 9:16:12 AM Referred By: Ariel Mason Confirmed By:Thomas Bellamy
--- NOTE | 2021-01-06 12:11 | XCELERA ---
[id number] \\[id number]
--- NOTE | 2021-01-06 13:53 | Discharge Summary ---
Date of Service January 06, 2021 Admission HPI Per Admitting Provider Luciana Weiner is a 75yo female presenting with exertional chest discomfort. Discomfort started yesterday afternoon after patient was vacuuming her house. She had left sided chest pressure 3/10 in severity with radiation down her left arm. She sat down to rest and her pain resolved after appx 10 minutes. This morning she woke up feeling well and decided to check her blood pressure which was found to be 200 systolic. She took her blood pressure medications early and after a few hours her blood pressure improved to 116/70. She had recurrence of her chest discomfort later in the day described as intermittent left sided chest heaviness with radiation down the left arm that occurred with exertion. Pain 4/10 in severity. No palpitations, diaphoresis, dizziness associate with discomfort. Presently chest pain free. She has family history of premature CAD -CO x 2 in brother in his 40's as well as HTN/HLP. She reports having a stress test several years ago which was unremarkable. No prior cardiac catheterizations or stents. ER Course: ASA, Nitro Principal Diagnosis Chest pain-noncardiac Elevated blood pressure Possible COVID vaccine reaction Discharge Exam Constitutional WD/WN, vitals as above Eyes PERRL, conjunctivae normal, anicteric sclerae ENMT external ear and nose normal, oropharynx normal Neck trachea midline, no thyromegaly Respiratory normal respiratory effort, lungs clear to auscultation Cardiovascular RRR, no murmur, no edema Chest (Breasts) Chest: normal inspection of chest Gastrointestinal (Abdomen) normal bowel sounds, soft, nontender, no hepatosplenomegaly Musculoskeletal Extremities: extremities normal to inspection; no cyanosis and no clubbing Skin no rashes, warm and dry Neurologic moves all extremities and awake; no focal motor deficits Psychiatric A+Ox3, euthymic affect Lymphatic no lymphedema Discharge Data Allergies Allergy/AdvReac Type Severity Reaction Status Date / Time hornet venom Allergy Severe ANAPHYLAXIS Verified 01/05/21 15:19 nalbuphine Allergy Severe "CAN'T Verified 01/05/21 15:19 BREATH" venom-honey bee Allergy Severe Anaphylaxis Verified 01/05/21 15:19 amoxicillin Allergy Intermediate VASCULITIS Verified 01/05/21 15:19 ampicillin Allergy Intermediate VASCULITIS Verified 01/05/21 15:19 clavulanic acid Allergy Intermediate VASCULITIS Verified 01/05/21 15:19 LEGS Iodinated Contrast Media Allergy Intermediate Hives Verified 01/05/21 15:19 Penicillins Allergy Intermediate VASCULITIS Verified 01/05/21 15:19 LEGS, AMOXIL-RASH latex Allergy Rash Unverified 01/05/21 20:09 Consultations 01/05/21 19:10 ED Decision to Admit Stat Ordered Studies CXR Stress ECHO Hospital Course (1) Chest pain: 75yo female with history of HTN, HLP, family history of premature CAD presenting with exertional chest discomfort the day prior to admission that has since resolved ECG normal, serial troponin neg x 3 Stress ECHO negative BPs under better control -see below for plan No events on tele Possible adverse side effect of COVID vaccine she received a few days before? Noncardiac Stable for dc to home (2) HTN (hypertension): Blood pressure elevated on arrival, has since improved Typical BPs at home are 130s systolic in the AM before meds and then 118 after meds. Does not eat excessive sodium, does take daily NSAIDs for years and cannot go without them due to increased pain. Rarely drinks EtOH -Continue Irbesartan 150mg po daily and advised to take an extra dose in the evening if BP>140/90 She will keep track of BPs tid for the next 2 weeks and f/u with PCP Perhaps this also was an adverse SE from COVID vaccine with increased inflammatory response? 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 No respiratory complaints. Breathing comfortably on room air -Continue Ipratropium/Albuterol -Continue Budesonide-Formoterol -Continue Albuterol (5) Hypothyroidism: Chronic. Stable -Continue Synthyroid 100mcg po daily (6) GERD (gastroesophageal reflux disease): Chronic. Stable. Patient with hiatal hernia as well. Presently with no complaints re: this issue -Continue Omeprazole 20mg po daily Ppx - Low risk for DVT - encourage ambulation Code - Full Dispo - stable for dc to home Total Time Total Time Spent Total Time Spent (In Minutes): 35 min Total Time Includes: Examination of the Patient, Discharge Planning and Medication Reconciliation Discharge Plan Discharge Items Patient Disposition: Home - Self-Care Reason For Visit: CHEST PAIN Discharge Diagnosis: Non-cardiac Chest pain, Elevated blood pressure Condition on Discharge: Good Activity: Resume your previous activity Non-emergency contact: Primary Care Provider Call non-emergency contact if: you have any medication questions, your symptoms worsen, your pain is not controlled, your pain is worsening, your pain is unusual for you and your pain is concerning for you Follow-up/Referrals: Ariel Mason, [Primary Care Provider] - (Please follow up within 1-2 weeks.) Diet: Heart Healthy and Low Sodium (2gm) Addtl Attending Provider Instructions: You were admitted after having an episode of chest pain and then elevated blood pressures. You had a negative workup of your heart--> you did not have a heart attack and your cardiac stress test was normal. It is possible that your chest pain and your elevated blood pressure may have been adverse side effects from your recent COVID vaccine. Please keep track of your blood pressure three times a day at least for the next 1-2 weeks and take an extra dose of your irbesartan in the evening if your blood pressure is > 140/90. Follow up with your PCP within 1 week. Pending Studies at Discharge: No Stand-Alone Forms: My [facility] Medications and DC Order Prescriptions: Continued Symbicort 80-4.5 mcg/actuation HFA aerosol inhaler 2 puffs INH BID Qty: 3 RF: 3 hydrochlorothiazide 25 mg tablet 25 mg PO DAILY Qty: 90 RF: 3 epinephrine [EpiPen 2-Zac] 0.3 mg/0.3 mL auto-injector 0.3 mg IM Q10M PRN (Reason: anaphylaxis) Qty: 2 RF: 0 pravastatin 20 mg tablet 20 mg PO DAILY Qty: 90 RF: 2 levothyroxine 100 mcg tablet 100 mcg PO DAILY Qty: 90 RF: 2 omeprazole 20 mg capsule,delayed release(DR/EC) 20 mg PO DAILY Qty: 90 RF: 1 calcium carbonate [Calcium 600] 600 mg calcium (1,500 mg) tablet 600 mg PO BID RF: 0 Lumigan 0.01 % drops 1 drops OP QPM RF: 0 magnesium 250 mg tablet 250 mg PO DAILY RF: 0 triamcinolone acetonide [Nasacort] 55 mcg aerosol,spray 1 sprays INTNAS DAILY RF: 0 cholecalciferol (vitamin D3) 1,000 unit capsule 1,000 units PO DAILY RF: 0 Zyrtec 10 mg capsule 10 mg PO DAILY RF: 0 glucosamine-chondroitin 900 mg tablet 900 mg PO DAILY RF: 0 coenzyme Q10 [Co Q-10] 100 mg capsule 100 mg PO BID RF: 0 ketoconazole 2 % cream 1 appln TOP BID PRN (Reason: Skin Irritation) RF: 0 albuterol sulfate [ProAir HFA] 90 mcg/actuation HFA aerosol inhaler 2 puffs INH Q6H PRN (Reason: shortness of breath or wheezing) Qty: 18 RF: 1 ipratropium-albuterol 0.5 mg-3 mg(2.5 mg base)/3 mL solution for nebulization 3 ml INH QID PRN (Reason: Shortness Of Breath Or Wheezing) RF: 0 meloxicam 7.5 mg tablet 7.5 mg PO DAILY PRN (Reason: neck pain) Qty: 20 RF: 2 irbesartan 150 mg tablet 150 mg PO DAILY Qty: 60 RF: 0 Discharge Orders: Discharge Order (Routine); Ordered 01/06/21 Ordered By: Mary Tellez Admission Data Admit Date/Time: 01/05/21 19:44 Attending Provider: Mary Tellez Admit Provider: Yaneli Harrison Primary Care Provider: Ariel Mason Other Providers: Yaneli Harrison Coding Level of Care Code 24501 OBS Care - Discharge Diagnoses Chest pain R07.9 Chest pain type: unspecified HTN (hypertension) I10 Hypertension type: essential hypertension Dyslipidemia E78.5 Restrictive lung disease J98.4 Hypothyroidism E03.9 Hypothyroidism type: unspecified GERD (gastroesophageal reflux disease) K21.9 Esophagitis presence: esophagitis presence not specified
[2021-01-06] MEDS ORDERED: BIMATOPROST 0.01% OP SOLN 2.5 ML BTL OP SCH (22:15)
== END 2021-01-06 14:20 | disposition home or self-care (01) ==
LOC: 2N 17:01 → ED 17:01 → SUATTDRO 19:44 → 2N 21:18

== ENCOUNTER 2024-04-08 07:54 | Inpatient (IN) ==
--- NOTE | 2024-04-08 08:36 | Emergency Department Note ---
Impression & Plan Fall, Closed fracture of left patella, Acute knee pain ED Provider Note NAME: ZAINAB LUNA AGE: 79 SEX: F : 1945 ARRIVES VIA: Ambulance INFORMANT: Patient, ED PROVIDER(S): Filemon Gomes MD CHIEF COMPLAINT: Fall, knee pain MEDICAL DECISION MAKING: Patient presents due to concern for fall and left knee pain. IV was established and blood work was obtained along with plain films of the left lower extremity. Patient did receive ice pack Tylenol and IV fentanyl. Recinos shows a white count of 13 with normal H&H and platelet count. Kidney function unremarkable mild hyponatremia 135. The patient's plain films do show concern for patellar fracture. I did message on-call orthopedics Dr. Mora who suggested I speak with Dr. Tejeda given that the patient has been seen by Dr. Tejeda in the past. Patient did have recurrence of pain after x-rays and the patient did receive additional IV fentanyl 50 mcg. I did speak with case management no availability for rehab today so I did speak with the on-call hospital service Dr. Beard. Patient was admitted to the medicine service for PT OT as well as orthopedic consultation. The patient was placed in a knee immobilizer. Definitive Fracture Care note: Dx: Left patella fracture Plan: Immobilization, rest, ice, elevation, analgesia, orthopedic follow up in 3-5 days. Discussion w/ other healthcare providers: None Prior /Outside records reviewed: I reviewed a primary care visit from March 17, [address] Quiroz. Known history of diastolic heart failure currently on Bumex and Coreg. History of cardiomyopathy gastritis nocturnal hypoxemia on 2 L at night. Differential diagnosis: Fracture, sprain, strain, subluxation, dislocation, contusion, ligamentous injury, neurovascular, as well as other etiologies were considered. Diagnostics, as interpreted by me: ECG: None Cardiac monitoring: An order was placed for continuous cardiac monitoring. The monitor shows a rate of 88 with sinus rhythm. Patient was placed on pulse oximetry Medical decision rules: None Imaging studies: I informally interpreted the patient's knee x-ray which does show patellar fracture with formal report to follow. I informally interpreted the patient's femur x-ray which does show a patellar fracture with formal report to follow. I informally reviewed the patient's hip and pelvis x-ray which does not show obvious fracture dislocation with formal report to follow. HPI: Patient presents due to concern for fall and associated left leg pain. The patient states that she was carrying groceries down a gravel path to her home when she tripped over a garden hose striking her left knee. Patient states that she was unable to get up on her own but was assisted and was then able to walk thereafter. She was only able to walk though with the assistance of a walker that she had from her [id number]. Patient states that this initial incident occurred at 4 PM but by 8 PM the patient was having significant discomfort. The patient does not take anything for pain at home. 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 Patient denies any chest pains or shortness of breath no head strike or LOC does not take blood thinning medications. Patient does complain of primarily knee pain but also does have left thigh pain. The patient has followed Dr. Tejeda with orthopedics in the past. PAST MEDICAL HISTORY: See Below PAST SURGICAL HISTORY: See Below SOCIAL HISTORY: See Below HOME MEDICATIONS: See Below ALLERGIES: See Below VITALS: See Below PHYSICAL EXAMINATION: GENERAL: NAD, non-toxic. Wearing glasses. EYE EXAM: Normal conjunctiva. PERRL, no anisocoria and EOM's grossly intact w/o pain. OROPHARYNX: Moist mucus membranes, grossly normal dentition. NECK: Trachea midline, no stridor. Supple, no nuchal rigidity, no adenopathy, non-tender. No signs of meningismus. FROM of the neck with good chin to chest and neck extension. LUNGS: Clear to auscultation. Normal chest wall mechanics. Chest: No reproducible chest wall pain HEART: NSR, no MRG. ABDOMEN: Abdomen soft, non-tender, no masses, no rebound or guarding. BACK: No CVA TTP. SKIN: No rashes and no bruising. UPPER EXTREMITIES: Upper extremities are grossly normal. No TTP or deformity. LOWER EXTREMITIES: Left lower extremity with associated knee pain and swelling, calor noted no significant redness, slight abrasion and bruising noted to the patella but with no laceration, pain to the anterior knee as well as proximal to the knee left femur. No obvious deformity decreased range of motion of the left lower extremity secondary to pain, able to move the ankle and toes of the left lower extremity with good DP pulse and sensate to DP SP and tibialis nerves. NEURO EXAM: A&O x3, cranial nerves II-XII grossly intact, normal speech, moves all 4 extremities. Past Med/Surg History Problem List (Updated 04/08/24 @ 12:29 by Filemon Gomes MD) Acute knee pain (Acute) Closed fracture of left patella (Acute) Fall (Acute) Left patella fracture Ambulatory dysfunction Fall Abdominal pain LVH (left ventricular hypertrophy) Asthma Diastolic heart failure Gastritis Cardiomyopathy Acute bronchitis Acute heart failure Sinusitis Acute bronchospasm Osteoarthritis of knees, bilateral Implantable loop recorder present Rotator cuff tear, left Rotator cuff tear, right Valvular heart disease Nocturnal hypoxemia Poorly-controlled hypertension (Acute) HTN (hypertension) (Chronic) Dyslipidemia (Acute) Hypothyroidism (Chronic) Osteopenia 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 PFTs (04/11) demonstrated moderate restriction without improvement after bronchodilators Asthma (Chronic) daily and rescue inh Hx of malignant neoplasm of female breast dx 2005, sx, chemo, and xrt; no longer has limb restriction Glaucoma Generalized osteoarthritis Allergic rhinitis Urinary incontinence (Acute) GERD (gastroesophageal reflux disease) (Chronic) Medical History CHF (congestive heart failure) recent issue 12/2023--pt states she has greatly improved Heart failure Persistent cough pt states she was diagnosed with asthma exacerbation and then CHF 12/2023--states has greatly improved On home oxygen therapy 2L @[facility] Cystocele with rectocele Hx of basal cell carcinoma Hx of squamous cell carcinoma Balance problem "related to my joints" [place] (hard of hearing) "has also been getting some type of pounding noise in her ear when it gets quiet" Shoulder problem bilateral-gets injections PVCs (premature ventricular contractions) hx-2022, had loop recorder placed and removed>confirmed w/loop recorder>f/u dr. avelar-but no longer needs to see Diaphragmatic paralysis lt side Headache, migraine stopped with menopause History of paroxysmal supraventricular tachycardia Scoliosis Surgical History History of esophagogastroduodenoscopy (EGD) Hx of colonoscopy Hx of basal cell carcinoma excision Hx of squamous cell carcinoma excision History of loop recorder placed and removed 10/2023 History of tubal ligation History of hysterectomy with bilateral oophorectomy for uterine prolapse, concurrent pelvic floor repair History of tonsillectomy and adenoidectomy History of Mohs micrographic surgery for skin cancer nose History of mastectomy modified radical mastectomy right breast History of arthroscopy of knee with lysis of adhesions History of cholecystectomy 1990s Family History Grandmother (Maternal) Breast cancer Father Myocardial infarction Coronary heart disease Cardiac disorder Cancer Brother Myocardial infarction Deep vein thrombosis Cardiac disorder Hypertension Mother Coronary heart disease Cardiac disorder Hypertension Cancer Denies family history of Ovarian cancer Prostate cancer Lung cancer Colorectal cancer Stroke Social History Smoking Status: Never smoker Second Hand Exposure: Yes (family smoked); Do You Dip or Chew Tobacco: No; Hx Alcohol Use: Yes Alcohol type: wine and hard liquor Alcohol Intake Frequency: Monthly or Less Hx Substance Use: No Preferred Language: Italian Communication Ability: Effective Visual Impairment: Limited Hearing Ability: Hard of Hearing Pocket Cutter Required: No Beliefs That Will Affect Care: None marital status: Current Living Situation: Spouse current occupational status: retired How many Children do You have: 3 Feels Safe at Home: Yes Childhood Exposure to Second-Hand Smoke: Yes caffeine: Yes (drinks half caff and half decaf) Dental Care, Regularly: Yes Physical Activity Frequency: 1-2 Times per Week Physical Activity Frequency Comment: 2-3 times a week in pool Seatbelt Use: always Sunscreen Use: Yes (when she gardens ) Assistive Devices: Glasses and Oxygen - at Night Allergies Allergies Allergy/AdvReac Type Severity Reaction Status Date / Time hornet venom Allergy Severe ANAPHYLAXIS Verified 03/17/24 14:22 nalbuphine Allergy Severe "CAN'T Verified 03/17/24 14:22 BREATH" venom-honey bee Allergy Severe Anaphylaxis Verified 03/17/24 14:22 amoxicillin Allergy Intermediate VASCULITIS Verified 03/17/24 14:22 ampicillin Allergy Intermediate VASCULITIS Verified 03/17/24 14:22 clavulanic acid Allergy Intermediate VASCULITIS Verified 03/17/24 14:22 LEGS Iodinated Contrast Media Allergy Intermediate Hives Verified 03/17/24 14:22 Penicillins Allergy Intermediate VASCULITIS Verified 03/17/24 14:22 LEGS, AMOXIL-RASH latex Allergy Mild Rash Verified 03/17/24 14:22 amlodipine AdvReac Mild edema Verified 03/17/24 14:22 Home Meds Home Medications Medication Instructions Recorded Confirmed cetirizine 10 mg capsule (Zyrtec) 10 mg PO QAM 07/03/19 04/08/24 cholecalciferol (vitamin D3) 25 1,000 units PO QAM 07/03/19 04/08/24 mcg (1,000 unit) capsule magnesium 250 mg tablet 250 mg PO QPM 07/03/19 04/08/24 coenzyme Q10 100 mg capsule (Co 100 mg PO BID 07/12/20 04/08/24 Q-10) ketoconazole 2 % topical cream 1 appln topical BID PRN Skin 07/12/20 04/08/24 Irritation Oxygen Home [id number] 09/29/21 03/17/24 triamcinolone acetonide 55 mcg 2 spray intranasal QAM 09/29/21 04/08/24 nasal spray aerosol (Nasacort) calcium carb-vit D3-minerals 600 1 tab PO BID 06/09/22 04/08/24 mg calcium-400 unit tablet irbesartan 300 mg tablet 300 mg PO QAM 12/10/23 04/08/24 latanoprost 0.005 % eye drops 1 drp OPB HS 12/10/23 04/08/24 triamcinolone acetonide 0.1 % 1 applic topical UD PRN eczema 12/10/23 04/08/24 topical ointment cyanocobalamin (vitamin B-12) 1,000 mcg PO QAM 02/13/24 04/08/24 1,000 mcg tablet (Vitamin B-12) antiarthritic combination no.2 900 900 mg PO BID Pain 03/17/24 04/08/24 mg tablet (glucosamine-chondroitin) Previous Rx's Medication Instructions Recorded epinephrine 0.3 mg/0.3 mL 0.3 mg (0.3 mL) IM Q10M PRN 03/15/23 injection, auto-injector (EpiPen anaphylaxis #2 [id number]) budesonide-formoterol HFA 80 2 inh inhalation BID #10.2 grams 12/24/23 mcg-4.5 mcg/actuation aerosol inhaler (Symbicort) albuterol sulfate 90 mcg/actuation 2 puff inhalation Q6H PRN 01/07/24 aerosol inhaler (ProAir HFA) shortness of breath or wheezing #18 grams ipratropium 0.5 mg-albuterol 3 mg 3 ml inhalation Q6H PRN shortness 01/07/24 (2.5 mg base)/3 mL nebulization of breath or wheezing #90 mL soln carvedilol 6.25 mg tablet 6.25 mg PO BID #60 tabs 01/16/24 sucralfate 1 gram tablet 1 g PO QID #120 tabs 01/28/24 omeprazole 20 mg capsule,delayed 20 mg PO BID #180 caps 02/27/24 release bumetanide 0.5 mg tablet 0.5 mg PO DAILY #30 tabs 03/17/24 levothyroxine 125 mcg tablet 125 mcg PO QAM #90 tabs 03/17/24 Results & Data (ED) Vital Signs Vital Signs - 24 hr 04/08/24 08:01 04/08/24 09:30 04/08/24 09:31 Temperature 36.8 C Temperature Source Oral Pulse Rate 84 85 Pulse Rate [Right Finger] 88 Pulse Rhythm Regular Respiratory Rate 20 20 20 Blood Pressure 159/79 H Blood Pressure [Right Arm] 142/76 H Blood Pressure Mean 105 Blood Pressure Mean [Right Arm] 98 Blood Pressure Position [Right Arm] Sitting Pulse Oximetry 94 96 95 Oxygen Delivery Method Room Air Sepsis Recent Fever Within 48 Hours No Sepsis New/Unexplained Change in Mental Status N/A Sepsis Action Taken by Nursing No Action Required Home Medications Current Medication List: was personally reviewed by me Laboratory Data Attestation: I reviewed the patient's lab results. 04/08/24 09:17 04/08/24 09:17 Lab Results 04/08/24 Range/Units 09:17 WBC 13.23 H (4.8-10.8) K/ul RBC 4.56 (4.20-5.40) M/uL Hgb 13.5 (12.0-16.0) g/dl Hct 40.6 (37.0-47.0) % MCV 89.0 (80.0-100.0) fL MCH 29.6 (25.0-34.0) pg MCHC 33.3 (32.0-36.0) g/dL RDW Std Deviation 44.7 (36.4-46.3) fL RDW Coeff of Patrice 13.6 (11.5-14.5) % Plt Count 227 (130-400) K/uL MPV 10.7 (9.4-12.4) fL Immature Gran % (Auto) 0.5 % Neut % (Auto) 79.8 % Lymph % (Auto) 6.0 % [place] % (Auto) 13.5 % Eos % (Auto) 0.0 % Baso % (Auto) 0.2 % Neut # (Auto) 10.57 H (1.40-6.50) K/uL Lymph # (Auto) 0.80 L (1.20-3.40) K/uL [place] # (Auto) 1.78 H (0.11-0.59) K/uL Eos # (Auto) 0.00 (0.00-0.50) K/uL Baso # (Auto) 0.02 (0.00-0.20) K/uL Immature Gran # (Auto) 0.06 (0.01-0.20) K/uL Sodium 135 L (136-145) mmol/L Potassium 3.6 (3.5-5.1) mmol/L Chloride 98 (98-107) mmol/L Carbon Dioxide 28 (21-32) mmol/L Anion Gap 9 (3-11) BUN 20 (6-23) mg/dl Creatinine 0.62 (0.6-1.2) mg/dl Est Cr Clr Drug Dosing 75.2 ml/min Est GFR ( Amer) 98.0 ml/min Est GFR (Non-Af Amer) 84.6 ml/min BUN/Creatinine Ratio 32.3 H (10-20) Glucose 172 H (70-99(Fasting)) mg/dl Calcium 9.6 (8.6-10.3) mg/dl Magnesium 1.9 (1.7-2.4) mg/dl Administered Medications Hydromorphone HCl (Hydromorphone Inj 0.5 Mg/0.5 Ml Syr) 0.5 mg IV Q4H PRN PRN Reason: Pain(5+) Stop: 04/22/24 11:53 Last Admin: 04/08/24 13:18 Dose: 0.5 mg Documented By: DS Discontinued Medications Fentanyl Citrate (Fentanyl Citrate Pf 100 Mcg/2 Ml Vial) 25 mcg IV NOW STA Stop: 04/08/24 08:57 Last Admin: 04/08/24 09:21 Dose: 25 mcg Documented By: VINCENZO Fentanyl Citrate (Fentanyl Citrate Pf 100 Mcg/2 Ml Vial) 50 mcg IV NOW STA Stop: 04/08/24 11:16 Last Admin: 04/08/24 11:22 Dose: 50 mcg Documented By: YESENIA Acetaminophen (Ofirmev) 1,000 mg in 100 mls @ 400 mls/hr IV NOW STA Stop: 04/08/24 09:09 Last Infusion: 04/08/24 09:31 Dose: Infused Documented By: Admin: 04/08/24 09:16 Dose: 400 mls/hr Documented By: VINCENZO Imaging Data Radiologist's Impression: Femur X-Ray 04/08/24 08:56 LEFT FEMUR 2 VIEWS CLINICAL HISTORY: Fall. Left leg injury. FINDINGS: AP and crosstable lateral views of the left femur are obtained. No prior studies are available for comparison at the time of dictation. The skeletal structures are osteopenic. There is no radiographic evidence of left femoral fracture. The visualized left hemipelvis appears intact. Mild arthritic change and joint space narrowing is seen in the left hip. Arthritic change is noted in the knee joint. There is a comminuted fracture through the mid-body of the patella with mildly displaced fragments. There is an associated knee joint effusion and overlying soft tissue edema. The soft tissues of the thigh are normal as imaged. IMPRESSION: 1. There is no radiographic evidence of left femoral fracture. 2. Comminuted fracture of the patella with associated joint effusion and overlying soft tissue swelling. Electronically signed by: aDrrick Dejesus M.D. 04/08/2024 11:09 AM Hip/Pelvis X-Ray 04/08/24 08:56 XR hip LT 2V w pelvis CLINICAL HISTORY: knee pain, swelling, fall COMPARISON: CT of the abdomen and pelvis April 20, 2017. FINDINGS: Sacroiliac joints and symphysis pubis are intact. There are no fractures within the pelvis or hips. Moderate amount of stool within the rectum is present. No osseous lesions are identified. IMPRESSION: No fractures within the pelvis or hips. ACT 112: Negative or not required by law. Electronically signed by: José Cerda M.D. 04/08/2024 11:16 AM Knee X-Ray 04/08/24 08:56 XR knee LT 1 or 2V routine HISTORY: 79 years-old Female knee pain, swelling, fall COMPARISON: Left femur radiographs of same day TECHNIQUE: 3 views of the left knee FINDINGS: Acute comminuted intra-articular mid patellar fracture with distraction/displacement of the fracture fragments measuring up to 8 mm. Prepatellar soft tissue swelling with small to moderate joint effusion. Tricompartment osteoarthritis, moderate within the lateral patellofemoral compartment and severe within the medial compartment. IMPRESSION: Acute comminuted and mildly displaced intra-articular patellar fracture. ACT 112: Negative or not required by law. The above report was generated using voice recognition software. It may contain grammatical, syntax or spelling errors. Electronically signed by: Dane Pope M.D. 04/08/2024 11:16 AM Discharge Plan Visit Data Chief Complaint: Fall ED Provider: Filemon Gomes Discharge Problem: Fall, Closed fracture of left patella, Acute knee pain Patient Disposition: Admitted As Inpatient Discharge Instructions Interventions: ED Discharge Assessment Last Done: 04/08/24 13:42 Discharge Problem: Fall Qualifiers: Encounter type: initial encounter Qualified Code(s): W19.XXXA - Unspecified fall, initial encounter Closed fracture of left patella Qualifiers: Encounter type: initial encounter Fracture morphology: unspecified fracture morphology Fracture alignment: displaced Qualified Code(s): S82.002A - Unspecified fracture of left patella, initial encounter for closed fracture Acute knee pain Qualifiers: Laterality: left Qualified Code(s): M25.562 - Pain in left knee
[2024-04-08] MEDS: ACETAMINOPHEN 1,000 MG/100 ML VIAL IV STA ×2 (09:16→22:22)
[2024-04-08] MEDS: fentaNYL citrate PF 100 MCG/2 ML VIAL IV STA ×2 (09:21→11:22)
[2024-04-08 09:53] LABS: BUN Creatinine Ratio 32.3 (10-20); Calcium 9.6 mg/dl (8.6-10.3); Creatinine Clr Calc Pharmacy 75.2 ml/min; Est GFR (Non-African American) 84.6 ml/min; Magnesium 1.9 mg/dl (1.7-2.4); Potassium 3.6 mmol/L (3.5-5.1)
[2024-04-08 09:55] LABS: Basophils # (auto) 0.02 K/uL (0.00-0.20); Basophils % (auto) 0.2 %; Hematocrit (blood only) 40.6 % (37.0-47.0); Hemoglobin 13.5 g/dl (12.0-16.0); Immature Granulocytes # (auto) 0.06 K/uL (0.01-0.20); Immature Granulocytes % (auto) 0.5 %; Mean Corpuscular Hemoglobin 29.6 pg (25.0-34.0); Mean Corpuscular Hgb Conc 33.3 g/dL (32.0-36.0); Mean Platelet Volume 10.7 fL (9.4-12.4); Monocytes # (auto) 1.78 K/uL (0.11-0.59); Monocytes % (auto) 13.5 %; Neutrophils # (auto) 10.57 K/uL (1.40-6.50); Neutrophils % (auto) 79.8 %; Platelet Count 227 K/uL (130-400); RDW Coefficient of Variation 13.6 % (11.5-14.5); RDW Standard Deviation 44.7 fL (36.4-46.3); Red Blood Count 4.56 M/uL (4.20-5.40); White Blood Count 13.23 K/ul (4.8-10.8)
--- NOTE | 2024-04-08 11:11 | XRay Report ---
LEFT FEMUR 2 VIEWS CLINICAL HISTORY: Fall. Left leg injury. FINDINGS: AP and crosstable lateral views of the left femur are obtained. No prior studies are availa ble for comparison at the time of dictation. The skeletal structures are osteopenic. There is no radi ographic evidence of left femoral fracture. The visualized left hemipelvis appears intact. Mild arthr itic change and joint space narrowing is seen in the left hip. Arthritic change is noted in the knee joint. There is a comminuted fracture through the mid-body of the patella with mildly displaced fragm ents. There is an associated knee joint effusion and overlying soft tissue edema. The soft tissues of the thigh are normal as imaged. IMPRESSION: 1. There is no radiographic evidence of left femoral fracture. 2. Comminuted fracture of the patella with associated joint effusion and overlying soft tissue brittney multani. Electronically signed by: Darrick Dejesus M.D. 04/08/2024 11:09 AM
--- NOTE | 2024-04-08 11:17 | XRay Report ---
XR knee LT 1 or 2V routine HISTORY: 79 years-old Female knee pain, swelling, fall COMPARISON: Left femur radiographs of same day TECHNIQUE: 3 views of the left knee FINDINGS: Acute comminuted intra-articular mid patellar fracture with distraction/displacement of the fracture fragments measuring up to 8 mm. Prepatellar soft tissue swelling with small to moderate joint effusio n. Tricompartment osteoarthritis, moderate within the lateral patellofemoral compartment and severe w ithin the medial compartment. IMPRESSION: Acute comminuted and mildly displaced intra-articular patellar fracture. ACT 112: Negative or not required by law. The above report was generated using voice recognition software. It may contain grammatical, syntax o r spelling errors. Electronically signed by: Dane Pope M.D. 04/08/2024 11:16 AM
--- NOTE | 2024-04-08 11:17 | XRay Report ---
XR hip LT 2V w pelvis CLINICAL HISTORY: knee pain, swelling, fall COMPARISON: CT of the abdomen and pelvis April 20, 2017. FINDINGS: Sacroiliac joints and symphysis pubis are intact. There are no fractures within the pelvis or hips. Moderate amount of stool within the rectum is present. No osseous lesions are identified. IMPRESSION: No fractures within the pelvis or hips. ACT 112: Negative or not required by law. Electronically signed by: José Cerda M.D. 04/08/2024 11:16 AM
--- NOTE | 2024-04-08 11:46 | History & Physical Report ---
Date of Service April 08, 2024 Assessment & Plan (1) Ambulatory dysfunction: Plan: -Admit to med/surge on pulse oximetry -Currently stable and non-toxic appearing -Had a mechanical, GLF yesterday afternoon after tripping on a hose while brining groceries into her home -Did not hit her head or lose consciousness, no prodromal symptoms -Is not on anticoagulation outpatient -Sustained an acute comminuted and mildly displaced intra-articular patellar fracture -No other acute trauma on imaging of the BL hips/pelvis and left femur -Will obtain CXR on admission to rule out further trauma -Continue with knee immobilizer for now -Fall precautions -Orthopedics consult placed, will keep NPO until we hear back regarding need for surgical repair -Continue with scheduled tylenol, ice, and prn IV Dilaudid for severe pain -PRN Narcan for oversedation/resp depression -Will likely need rehab on discharge, PT/OT consults placed -Will hold chemical DVT PPX for now until we hear back from Ortho -NPO until OR plans are decided -AM CBC, BMP, mag (2) Left patella fracture: Plan: -See ambulatorydysfunction (3) Fall: Plan: -See ambulatory dysfunction (4) Asthma: Plan: -Stable on RA, no wheezing on exam -Incentive spirometry -Home breathing treatments (5) Nocturnal hypoxemia: Plan: -HS O2 ordered (6) HTN (hypertension): Plan: -Stable -Continue Bumex, Carvedilol, Irbesartan, Plan The patient was discussed with Dr. Beard at the time of the admission History of Present Illness Chief Complaint: Fall, LLE pain, ambulatory dysfunction Primary Care Provider: Danish Soriano MD Luciana is an 79 year old female with a PMH significant for Asthma, nocturnal hypoxemia, HFpEF, Cardiomyopathy, hypothyroidism, HTN, gastritis, who presented to the [facility] ED on 04/08/24 with complaints of ongoing left knee/left hip pain and ambulatory dysfunction since sustaining a ground level fall on 04/07/24. She remained stable in the ED. Labs were significant for a leukocytosis of 13 with neutrophil predominance of 10. Xray of the left knee was read as Acute comminuted and mildly displaced intra-articular patellar fracture. Xray of the BL hips and the left femur were negative for acute trauma to the hips, pelvis, or left femur. Prior to admission the patient was given 1gm IV Acetaminophen and a total of 75 mcg IV fentanyl. At the time of the exam the patient was lying in bed in no acute distress with her bedside, history was obtained from both. Had been in her normal state of health on 04/07. Was brining groceries into their home when her left foot caught their hose in the driveway, causing her to lose her balance and fall forward. She landed directly on her left knee, did not hit her head or lose consciousness. Denies prodromal symptoms such as lightheadedness, dizziness, chest pain, or heart palpitations. Was able to stand after the fall with the assistance of neighbors, but pain, swelling, and ambulatory dysfunction progressed overnight. Is unable to use crutches due to muscles loss int he left UE/chest from previous mastectomy. Pain is currently under control at rest, was recently severe while her knee immobilizer was being place. Denies recent fever, chills, chest pain, SOB, cough, headache, changes in vision, hearing, taste, smell, neck/pain pain, RLE pain, nausea/vomiting, abd pain, dysuria, hematuria, melena, or diarrhea. Is a conditional code; would not want CPR or defibrillation in the event of cardiac arrest. Would want a trial of intubation in the event of respiratory failure. is her POA. Please refer to Dr. Beard's attestation for any changes to the treatment plan. Allergies Allergy/AdvReac Type Severity Reaction Status Date / Time hornet venom Allergy Severe ANAPHYLAXIS Verified 03/17/24 14:22 nalbuphine Allergy Severe "CAN'T Verified 03/17/24 14:22 BREATH" venom-honey bee Allergy Severe Anaphylaxis Verified 03/17/24 14:22 amoxicillin Allergy Intermediate VASCULITIS Verified 03/17/24 14:22 ampicillin Allergy Intermediate VASCULITIS Verified 03/17/24 14:22 clavulanic acid Allergy Intermediate VASCULITIS Verified 03/17/24 14:22 LEGS Iodinated Contrast Media Allergy Intermediate Hives Verified 03/17/24 14:22 Penicillins Allergy Intermediate VASCULITIS Verified 03/17/24 14:22 LEGS, AMOXIL-RASH latex Allergy Mild Rash Verified 03/17/24 14:22 amlodipine AdvReac Mild edema Verified 03/17/24 14:22 Home Medications Medication Instructions Recorded Confirmed Type cetirizine 10 mg capsule (Zyrtec) 10 mg PO QAM 07/03/19 04/08/24 History cholecalciferol (vitamin D3) 25 1,000 units PO QAM 07/03/19 04/08/24 History mcg (1,000 unit) capsule magnesium 250 mg tablet 250 mg PO QPM 07/03/19 04/08/24 History coenzyme Q10 100 mg capsule (Co 100 mg PO BID 07/12/20 04/08/24 History Q-10) ketoconazole 2 % topical cream 1 appln topical BID PRN Skin 07/12/20 04/08/24 History Irritation Oxygen Home [id number] 09/29/21 03/17/24 History triamcinolone acetonide 55 mcg 2 spray intranasal QAM 09/29/21 04/08/24 History nasal spray aerosol (Nasacort) calcium carb-vit D3-minerals 600 1 tab PO BID 06/09/22 04/08/24 History mg calcium-400 unit tablet epinephrine 0.3 mg/0.3 mL 0.3 mg (0.3 mL) IM Q10M PRN 03/15/23 04/08/24 Rx injection, auto-injector (EpiPen anaphylaxis #2 [id number] [id number]) irbesartan 300 mg tablet 300 mg PO QAM 12/10/23 04/08/24 History latanoprost 0.005 % eye drops 1 drp OPB HS 12/10/23 04/08/24 History triamcinolone acetonide 0.1 % 1 applic topical UD PRN eczema 12/10/23 04/08/24 History topical ointment budesonide-formoterol HFA 80 2 inh inhalation BID #10.2 grams 12/24/23 04/08/24 Rx mcg-4.5 mcg/actuation aerosol inhaler (Symbicort) albuterol sulfate 90 mcg/actuation 2 puff inhalation Q6H PRN 01/07/24 04/08/24 Rx aerosol inhaler (ProAir HFA) shortness of breath or wheezing #18 grams ipratropium 0.5 mg-albuterol 3 mg 3 ml inhalation Q6H PRN shortness 01/07/24 04/08/24 Rx (2.5 mg base)/3 mL nebulization of breath or wheezing #90 mL soln carvedilol 6.25 mg tablet 6.25 mg PO BID #60 tabs 01/16/24 04/08/24 Rx sucralfate 1 gram tablet 1 g PO QID #120 tabs 01/28/24 04/08/24 Rx cyanocobalamin (vitamin B-12) 1,000 mcg PO QAM 02/13/24 04/08/24 History 1,000 mcg tablet (Vitamin B-12) omeprazole 20 mg capsule,delayed 20 mg PO BID #180 caps 02/27/24 04/08/24 Rx release antiarthritic combination no.2 900 900 mg PO BID Pain 03/17/24 04/08/24 History mg tablet (glucosamine-chondroitin) bumetanide 0.5 mg tablet 0.5 mg PO DAILY #30 tabs 03/17/24 04/08/24 Rx levothyroxine 125 mcg tablet 125 mcg PO QAM #90 tabs 03/17/24 04/08/24 Rx Past Med/Surg History Problem List (Updated 04/08/24 @ 12:29 by Filemon Gomes MD) Acute knee pain (Acute) Closed fracture of left patella (Acute) Fall (Acute) Left patella fracture Ambulatory dysfunction Fall Abdominal pain LVH (left ventricular hypertrophy) Asthma Diastolic heart failure Gastritis Cardiomyopathy Acute bronchitis Acute heart failure Sinusitis Acute bronchospasm Osteoarthritis of knees, bilateral Implantable loop recorder present Rotator cuff tear, left Rotator cuff tear, right Valvular heart disease Nocturnal hypoxemia Poorly-controlled hypertension (Acute) HTN (hypertension) (Chronic) Dyslipidemia (Acute) Hypothyroidism (Chronic) Osteopenia 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 PFTs (04/11) demonstrated moderate restriction without improvement after bronchodilators Asthma (Chronic) daily and rescue inh Hx of malignant neoplasm of female breast dx 2005, sx, chemo, and xrt; no longer has limb restriction Glaucoma Generalized osteoarthritis Allergic rhinitis Urinary incontinence (Acute) GERD (gastroesophageal reflux disease) (Chronic) Medical History CHF (congestive heart failure) recent issue 12/2023--pt states she has greatly improved Heart failure Persistent cough pt states she was diagnosed with asthma exacerbation and then CHF 12/2023--states has greatly improved On home oxygen therapy 2L @HS Cystocele with rectocele Hx of basal cell carcinoma Hx of squamous cell carcinoma Balance problem "related to my joints" CA[place]LLA (hard of hearing) "has also been getting some type of pounding noise in her ear when it gets quiet" Shoulder problem bilateral-gets injections PVCs (premature ventricular contractions) hx-2022, had loop recorder placed and removed>confirmed w/loop recorder>f/u dr. avelar-but no longer needs to see Diaphragmatic paralysis lt side Headache, migraine stopped with menopause History of paroxysmal supraventricular tachycardia Scoliosis Surgical History History of esophagogastroduodenoscopy (EGD) Hx of colonoscopy Hx of basal cell carcinoma excision Hx of squamous cell carcinoma excision History of loop recorder placed and removed 10/2023 History of tubal ligation History of hysterectomy with bilateral oophorectomy for uterine prolapse, concurrent pelvic floor repair History of tonsillectomy and adenoidectomy History of Mohs micrographic surgery for skin cancer nose History of mastectomy modified radical mastectomy right breast History of arthroscopy of knee with lysis of adhesions History of cholecystectomy 1990s Family History Grandmother (Maternal) Breast cancer Father Myocardial infarction Coronary heart disease Cardiac disorder Cancer Brother Myocardial infarction Deep vein thrombosis Cardiac disorder Hypertension Mother Coronary heart disease Cardiac disorder Hypertension Cancer Denies family history of Ovarian cancer Prostate cancer Lung cancer Colorectal cancer Stroke Social History Smoking Status: Never smoker Second Hand Exposure: Yes (family smoked); Do You Dip or Chew Tobacco: No; Hx Alcohol Use: Yes Alcohol type: wine and hard liquor Alcohol Intake Frequency: Monthly or Less Hx Substance Use: No Preferred Language: Luxembourgish Communication Ability: Effective Visual Impairment: Limited Hearing Ability: Hard of Hearing Nutrition Internship Required: No Beliefs That Will Affect Care: None marital status: Current Living Situation: Spouse current occupational status: retired How many Children do You have: 3 Feels Safe at Home: Yes Childhood Exposure to Second-Hand Smoke: Yes caffeine: Yes (drinks half caff and half decaf) Dental Care, Regularly: Yes Physical Activity Frequency: 1-2 Times per Week Physical Activity Frequency Comment: 2-3 times a week in pool Seatbelt Use: always Sunscreen Use: Yes (when she gardens ) Assistive Devices: Glasses and Oxygen - at Night Physical Exam Physical Exam: Physical Exam: General: In no acute distress, stated age, well-nourished, good hygiene HEENT: Normocephalic, atraumatic, no scleral icterus, pupils around round, symmetrical, and reactive to light, moist mucus membranes, trachea midline, no thyromegaly Chest/Pulm: No respiratory distress, symmetrical chest expansion, clear breath sounds throughout Cardiac: RRR, no murmurs noted Abdomen: Negative for ascites and bruising, normoactive bowel sounds, soft, non-tender to palpation throughout Musculoskeletal: Left knee is signficantly swollen with small skin laceration overlying the anterior patella without acute bleeding, no other acute trauma on inspection/palpation of the head, neck, BL UE's, chest, abd, pelvis, and RLE. Extremities: Radial, dorsalis pedis, and posterior tibial pulses are intact and symmetrical, left knee swelling as described above Skin: As described above Neuro: Alert and oriented to person, place, month, year, and president, no focal defects,no tremors noted Psych: No acute distress, calm and cooperative during the exam Results & Data Results & Data Vital Signs (Past 12 Hours) Vital Signs Temp Pulse Pulse Resp BP BP Pulse Ox 04/08/24 09:31 85 20 95 04/08/24 09:30 88 20 142/76 H 96 04/08/24 08:01 36.8 C 84 20 159/79 H 94 O2 Del Method 04/08/24 09:31 04/08/24 09:30 04/08/24 08:01 Room Air Laboratory Results Abnormal lab results 04/08/24 Range/Units 09:17 WBC 13.23 H (4.8-10.8) K/ul Neut # (Auto) 10.57 H (1.40-6.50) K/uL Lymph # (Auto) 0.80 L (1.20-3.40) K/uL [place] # (Auto) 1.78 H (0.11-0.59) K/uL Sodium 135 L (136-145) mmol/L BUN/Creatinine Ratio 32.3 H (10-20) Glucose 172 H (70-99(Fasting)) mg/dl Diagnostic Findings Femur X-Ray 04/08/24 08:56 LEFT FEMUR 2 VIEWS CLINICAL HISTORY: Fall. Left leg injury. FINDINGS: AP and crosstable lateral views of the left femur are obtained. No prior studies are available for comparison at the time of dictation. The skeletal structures are osteopenic. There is no radiographic evidence of left femoral fracture. The visualized left hemipelvis appears intact. Mild arthritic change and joint space narrowing is seen in the left hip. Arthritic change is noted in the knee joint. There is a comminuted fracture through the mid-body of the patella with mildly displaced fragments. There is an associated knee joint effusion and overlying soft tissue edema. The soft tissues of the thigh are normal as imaged. IMPRESSION: 1. There is no radiographic evidence of left femoral fracture. 2. Comminuted fracture of the patella with associated joint effusion and overlying soft tissue swelling. Electronically signed by: Darrick Dejesus M.D. 04/08/2024 11:09 AM Hip/Pelvis X-Ray 04/08/24 08:56 XR hip LT 2V w pelvis CLINICAL HISTORY: knee pain, swelling, fall COMPARISON: CT of the abdomen and pelvis April 20, 2017. FINDINGS: Sacroiliac joints and symphysis pubis are intact. There are no fractures within the pelvis or hips. Moderate amount of stool within the rectum is present. No osseous lesions are identified. IMPRESSION: No fractures within the pelvis or hips. ACT 112: Negative or not required by law. Electronically signed by: José Cerda M.D. 04/08/2024 11:16 AM Knee X-Ray 04/08/24 08:56 XR knee LT 1 or 2V routine HISTORY: 79 years-old Female knee pain, swelling, fall COMPARISON: Left femur radiographs of same day TECHNIQUE: 3 views of the left knee FINDINGS: Acute comminuted intra-articular mid patellar fracture with distraction/displacement of the fracture fragments measuring up to 8 mm. Prepatellar soft tissue swelling with small to moderate joint effusion. Tr icompartment osteoarthritis, moderate within the lateral patellofemoral compartment and severe within the medial compartment. IMPRESSION: Acute comminuted and mildly displaced intra-articular patellar fracture. ACT 112: Negative or not required by law. The above report was generated using voice recognition software. It may contain grammatical, syntax or spelling errors. Electronically signed by: Dane Pope M.D. 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 Patient's fall is mechanical, she was carrying groceries and she tripped and fell which caused her to strike her left knee 8 and while she could walk after difficulty bearing weight due to pain. Pain gradually increased over the evening yesterday. On emergency department review she is found to have an acute comminuted intra-articular patella fracture with approximately 7.96 mm of displacement. She is here at bedside with her present. Does have some 5/10 discomfort in the left knee as she was recently moved around for an EKG and imaging, but pain is improved at rest. Patient notes that she is not able to use crutches or a walker due to having had shoulder surgery and is too weak to do this so if she is not able to put weight on her leg adequately would likely need to be in a wheelchair. Patient reports she will discuss with Ortho, and in addition was curious over whether a knee replacement in general would be better since she has had a history of issues and was thinking about that anyway. Patient will follow-up on this conversation with orthopedics who has been consulted. No chest pain, no chest pressure, no shortness of breath on admission. Denies recent illness. Ankle dorsiflexion/plantarflexion is intact without deficit, PT pulses intact bilaterally, sensation of soft touch is intact in the feet bilaterally. No signs of neurovascular compromisePatient is admitted to medical service. No signs of acute CHF, dysrhythmia, or stroke contributing to her fall. She does not have a fracture seen on admitting x-rays. Agree with Ortho consult, pain control, PT OT. Operative versus nonoperative recommendations pending Ortho evaluation. Agree with assessment and management above PG Care Time/CCT Total # of Minutes Spent Total Time Spent with Patient: Total time spent is greater than 50% in coordination of care (as documented) at patient's floor/unit and/or counseling patient: C[place] [address] INT INP/OBS CARE 2/55MIN Patient Type Established Medical Decision Making Moderate Complexity Diagnoses Ambulatory dysfunction R26.2 Left patella fracture S82.002A Fall W19.XXXA Asthma J45.909 Nocturnal hypoxemia G47.34 Essential hypertension I10 Hypertension type: essential hypertension (6) HTN (hypertension) Hypertension type: essential hypertension Qualified Code(s): I10 - Essential (primary) hypertension
[2024-04-08] MEDS ORDERED: NALOXONE HCL 0.4 MG/1 ML VIAL/CARP IV PRN (12:09)
[2024-04-08] MEDS: HYDROmorphone INJ 0.5 MG/0.5 ML SYR IV PRN (13:18)
[2024-04-08] MEDS ORDERED: ALBUT/IPRATROP 3MG/0.5MG NEB 3 ML VIAL INH PRN (14:50)
--- NOTE | 2024-04-08 14:50 | XRay Report ---
SINGLE VIEW CHEST CLINICAL HISTORY: Fall. FINDINGS: An AP, portable, supine chest radiograph is compared to chest x-ray and chest CT dated 01/17. The heart is enlarged. The pulmonary vasculature is noncongested. Chronic interstitial thicken ing is similar to previous. There is chronic elevation of the left hemidiaphragm with left basilar at electasis. No airspace consolidation or large pleural effusion is identified. No pneumothorax is seen . The skeletal structures are osteopenic. The bony thorax is grossly intact. IMPRESSION: Cardiomegaly with no acute cardiopulmonary abnormality identified. ACT 112: Negative or not required by law. Electronically signed by: Darrick Dejesus M.D. 04/08/2024 2:49 PM
--- NOTE | 2024-04-08 15:07 | Orthopedic Consultation ---
Date of Service April 08, 2024 Assessment & Plan (1) Closed fracture of left patella: Plan for nonoperative management for this fracture. Xrays reviewed with Dr. Harrison. She can eat/drink today from orthopedic standpoint. She agreed to knee aspiration today. I was able to aspirate approximate 10ml of blood from the knee. Continue knee immobilizer. No knee range of motion at this time. Okay to wbat with the knee immobilizer. Should follow up as outpatient in 2 weeks. Procedure note: Left knee was sterilely prepped with alcohol and using aseptic technique approximately 10ml of blood was aspirated from the knee joint. She tolerated the procedure well. No complications. History of Present Illness Reason for Consultation: . Requesting Physician: . Attending Physician: Arnold Beard MD . Luciana is a 79 year old patient with a history of advanced knee arthritis. She tripped and fell yesterday and injured her knee. She was helped up and was able to initially walk on while using a walker. However, her pain worsened and she was unable to continue walking. She presented to the ER and was admitted to the hospitalist service. She complains of left knee pain. Allergies Allergy/AdvReac Type Severity Reaction Status Date / Time hornet venom Allergy Severe ANAPHYLAXIS Verified 03/17/24 14:22 nalbuphine Allergy Severe "CAN'T Verified 03/17/24 14:22 BREATH" venom-honey bee Allergy Severe Anaphylaxis Verified 03/17/24 14:22 amoxicillin Allergy Intermediate VASCULITIS Verified 03/17/24 14:22 ampicillin Allergy Intermediate VASCULITIS Verified 03/17/24 14:22 clavulanic acid Allergy Intermediate VASCULITIS Verified 03/17/24 14:22 LEGS Iodinated Contrast Media Allergy Intermediate Hives Verified 03/17/24 14:22 Penicillins Allergy Intermediate VASCULITIS Verified 03/17/24 14:22 LEGS, AMOXIL-RASH latex Allergy Mild Rash Verified 03/17/24 14:22 amlodipine AdvReac Mild edema Verified 03/17/24 14:22 Home Medications Medication Instructions Recorded Confirmed Type cetirizine 10 mg capsule (Zyrtec) 10 mg PO QAM 07/03/19 04/08/24 History cholecalciferol (vitamin D3) 25 1,000 units PO QAM 07/03/19 04/08/24 History mcg (1,000 unit) capsule magnesium 250 mg tablet 250 mg PO QPM 07/03/19 04/08/24 History coenzyme Q10 100 mg capsule (Co 100 mg PO BID 07/12/20 04/08/24 History Q-10) ketoconazole 2 % topical cream 1 appln topical BID PRN Skin 07/12/20 04/08/24 History Irritation Oxygen Home [id number] 09/29/21 03/17/24 History triamcinolone acetonide 55 mcg 2 spray intranasal QAM 09/29/21 04/08/24 History nasal spray aerosol (Nasacort) calcium carb-vit D3-minerals 600 1 tab PO BID 06/09/22 04/08/24 History mg calcium-400 unit tablet epinephrine 0.3 mg/0.3 mL 0.3 mg (0.3 mL) IM Q10M PRN 03/15/23 04/08/24 Rx injection, auto-injector (EpiPen anaphylaxis #2 ea 2-Zac) irbesartan 300 mg tablet 300 mg PO QAM 12/10/23 04/08/24 History latanoprost 0.005 % eye drops 1 drp OPB HS 12/10/23 04/08/24 History triamcinolone acetonide 0.1 % 1 applic topical UD PRN eczema 12/10/23 04/08/24 History topical ointment budesonide-formoterol HFA 80 2 inh inhalation BID #10.2 grams 12/24/23 04/08/24 Rx mcg-4.5 mcg/actuation aerosol inhaler (Symbicort) albuterol sulfate 90 mcg/actuation 2 puff inhalation Q6H PRN 01/07/24 04/08/24 Rx aerosol inhaler (ProAir HFA) shortness of breath or wheezing #18 grams ipratropium 0.5 mg-albuterol 3 mg 3 ml inhalation Q6H PRN shortness 01/07/24 04/08/24 Rx (2.5 mg base)/3 mL nebulization of breath or wheezing #90 mL soln carvedilol 6.25 mg tablet 6.25 mg PO BID #60 tabs 01/16/24 04/08/24 Rx sucralfate 1 gram tablet 1 g PO QID #120 tabs 01/28/24 04/08/24 Rx cyanocobalamin (vitamin B-12) 1,000 mcg PO QAM 02/13/24 04/08/24 History 1,000 mcg tablet (Vitamin B-12) omeprazole 20 mg capsule,delayed 20 mg PO BID #180 caps 02/27/24 04/08/24 Rx release antiarthritic combination no.2 900 900 mg PO BID Pain 03/17/24 04/08/24 History mg tablet (glucosamine-chondroitin) bumetanide 0.5 mg tablet 0.5 mg PO DAILY #30 tabs 03/17/24 04/08/24 Rx levothyroxine 125 mcg tablet 125 mcg PO QAM #90 tabs 03/17/24 04/08/24 Rx Past Med/Surg History Problem List Acute knee pain (Acute) Closed fracture of left patella (Acute) Fall (Acute) Left patella fracture Ambulatory dysfunction Fall Abdominal pain LVH (left ventricular hypertrophy) Asthma Diastolic heart failure Gastritis Cardiomyopathy Acute bronchitis Acute heart failure Sinusitis Acute bronchospasm Osteoarthritis of knees, bilateral Implantable loop recorder present Rotator cuff tear, left Rotator cuff tear, right Valvular heart disease Nocturnal hypoxemia Poorly-controlled hypertension (Acute) HTN (hypertension) (Chronic) Dyslipidemia (Acute) Hypothyroidism (Chronic) Osteopenia 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 PFTs (04/11) demonstrated moderate restriction without improvement after bronchodilators Asthma (Chronic) daily and rescue inh Hx of malignant neoplasm of female breast dx 2005, sx, chemo, and xrt; no longer has limb restriction Glaucoma Generalized osteoarthritis Allergic rhinitis Urinary incontinence (Acute) GERD (gastroesophageal reflux disease) (Chronic) Medical History CHF (congestive heart failure) recent issue 12/2023--pt states she has greatly improved Heart failure Persistent cough pt states she was diagnosed with asthma exacerbation and then CHF 12/2023--states has greatly improved On home oxygen therapy 2L @[facility] Cystocele with rectocele Hx of basal cell carcinoma Hx of squamous cell carcinoma Balance problem "related to my joints" [place] (hard of hearing) "has also been getting some type of pounding noise in her ear when it gets quiet" Shoulder problem bilateral-gets injections PVCs (premature ventricular contractions) hx-2022, had loop recorder placed and removed>confirmed w/loop recorder>f/u dr. avelar-but no longer needs to see Diaphragmatic paralysis lt side Headache, migraine stopped with menopause History of paroxysmal supraventricular tachycardia Scoliosis Surgical History History of esophagogastroduodenoscopy (EGD) Hx of colonoscopy Hx of basal cell carcinoma excision Hx of squamous cell carcinoma excision History of loop recorder placed and removed 10/2023 History of tubal ligation History of hysterectomy with bilateral oophorectomy for uterine prolapse, concurrent pelvic floor repair History of tonsillectomy and adenoidectomy History of Mohs micrographic surgery for skin cancer nose History of mastectomy modified radical mastectomy right breast History of arthroscopy of knee with lysis of adhesions History of cholecystectomy 1990s Family History Grandmother (Maternal) Breast cancer Father Myocardial infarction Coronary heart disease Cardiac disorder Cancer Brother Myocardial infarction Deep vein thrombosis Cardiac disorder Hypertension Mother Coronary heart disease Cardiac disorder Hypertension Cancer Denies family history of Ovarian cancer Prostate cancer Lung cancer Colorectal cancer Stroke Social History Smoking Status: Never smoker Second Hand Exposure: Yes (previous years not now); Do You Dip or Chew Tobacco: No; Hx Alcohol Use: Yes (occasional) Alcohol type: wine Alcohol Intake Frequency: Monthly or Less Hx Substance Use: No Preferred Language: Korean Communication Ability: Effective Visual Impairment: Limited Hearing Ability: Hard of Hearing Water Filtration Technician Required: No Beliefs That Will Affect Care: None marital status: Current Living Situation: Spouse current occupational status: retired How many Children do You have: 3 Other Information That Helps Us Care for You: No Feels Safe at Home: Yes Safety Concerns: Feels Safe At This Time Childhood Exposure to Second-Hand Smoke: Yes caffeine: Yes (drinks half caff and half decaf) Dental Care, Regularly: Yes Physical Activity Frequency: 1-2 Times per Week Physical Activity Frequency Comment: 2-3 times a week in pool Seatbelt Use: always Sunscreen Use: Yes (when she gardens ) Assistive Devices: Glasses Review of Systems All systems reviewed & are unremarkable except as noted in HPI & below. Physical Exam . Alert and oriented. NAD Left leg: +knee effusion, abrasion on the anterior knee. Unable to do straight leg raise. I did not do any knee flexion. She is tender to palpation around the knee. She can dorsiflex and plantarflex. Results & Data Results & Data Laboratory Results . Diagnostic Findings .xrays of the left knee show a comminuted mildly displaced patella fracture, advanced knee arthritis. PG Care Time/CCT Total # of Minutes Spent Total Time Spent with Patient: Total time spent is greater than 50% in coordination of care (as documented) at patient's floor/unit and/or counseling patient: Coding Level of Care Code 34255 IN/OBS CONSULT LVL 3,45M (25 - SIGNIFICANT, SEPARATELY IDENTIFIABLE ) Diagnoses Closed fracture of left patella S82.002A Encounter type: initial encounter Fracture alignment: displaced Fracture morphology: unspecified fracture morphology Additional Codes Fx Knee/Leg - Patellar: Patellar ([id number]) (1) Closed fracture of left patella Encounter type: initial encounter Fracture alignment: displaced Fracture morphology: unspecified fracture morphology Qualified Code(s): S82.002A - Unspecified fracture of left patella, initial encounter for closed fracture
[2024-04-08] MEDS: SUCRALFATE 1 GM TAB PO SCH (15:52)
[2024-04-08] MEDS: PANTOprazole 40 MG TAB PO SCH (16:59)
[2024-04-08] MEDS: ACETAMINOPHEN 325 MG TAB PO SCH (17:00)
--- NOTE | 2024-04-08 17:45 | Electrocardiogram Report ---
Test Reason : Blood Pressure : / mmHG Vent. Rate : 087 BPM Atrial Rate : 087 BPM P-R Int : 188 ms QRS Dur : 076 ms QT Int : 400 ms P-R-T Axes : -01 060 099 degrees QTc Int : 481 ms Normal sinus rhythm Normal ECG When compared with ECG of 17-JAN-2024 10:18, Criteria for Anterior infarct are no longer Present Criteria for Anterolateral infarct are no longer Present QT has lengthened Confirmed by Augustine Murcia ([id number]) on 04/08/2024 5:45:03 PM Referred By: REFERRED SELF Confirmed By:Eliel Murcia
[2024-04-08] MEDS: carvediloL 6.25 MG TAB PO SCH (21:02)
[2024-04-09] MEDS: LEVOTHYROXINE SODIUM 125 MCG TABLET PO SCH (05:47)
--- NOTE | 2024-04-09 06:58 | Orthopedic Consultation ---
Date of Service April 09, 2024 Assessment & Plan (1) Closed fracture of left patella: We discussed the diagnosis and treatment options at bedside today. The fracture is relatively nondisplaced. I am hoping that is able to heal on its own without surgery. I do want to follow this closely. She can be weightbearing as tolerated in the knee immobilizer. I will see her back in the office in a week. Will get repeat x-rays of the left knee. If it does show separation or distraction of the fracture then will likely require surgical fixation, however, if the fracture remains unchanged then we will continue conservative treatment. She will likely be in the knee immobilizer and weightbearing as tolerated for 6 weeks. She is orthopedically stable for discharge when medically ready. Orthopedic discharge instructions were placed in the discharge summary. History of Present Illness Reason for Consultation: Left knee minimally displaced patella fracture. Attending Physician: Arnold Beard MD Luciana is a pleasant 79-year-old female who lives alone. She was walking into her house yesterday when she tripped and fell on a garden hose. She fell direct ly on her left flexed knee. She was having knee pain. She came to the emergency room and radiographs demonstrated a minimally displaced left knee patella fracture. She was placed in a knee immobilizer. She was admitted to the hospital for ambulatory dysfunction. Orthopedics was consulted to evaluate and treat.. . Allergies Allergy/AdvReac Type Severity Reaction Status Date / Time hornet venom Allergy Severe ANAPHYLAXIS Verified 03/17/24 14:22 nalbuphine Allergy Severe "CAN'T Verified 03/17/24 14:22 BREATH" venom-honey bee Allergy Severe Anaphylaxis Verified 03/17/24 14:22 amoxicillin Allergy Intermediate VASCULITIS Verified 03/17/24 14:22 ampicillin Allergy Intermediate VASCULITIS Verified 03/17/24 14:22 clavulanic acid Allergy Intermediate VASCULITIS Verified 03/17/24 14:22 LEGS Iodinated Contrast Media Allergy Intermediate Hives Verified 03/17/24 14:22 Penicillins Allergy Intermediate VASCULITIS Verified 03/17/24 14:22 LEGS, AMOXIL-RASH latex Allergy Mild Rash Verified 03/17/24 14:22 amlodipine AdvReac Mild edema Verified 03/17/24 14:22 Home Medications Medication Instructions Recorded Confirmed Type cetirizine 10 mg capsule (Zyrtec) 10 mg PO QAM 07/03/19 04/08/24 History cholecalciferol (vitamin D3) 25 1,000 units PO QAM 07/03/19 04/08/24 History mcg (1,000 unit) capsule magnesium 250 mg tablet 250 mg PO QPM 07/03/19 04/08/24 History coenzyme Q10 100 mg capsule (Co 100 mg PO BID 07/12/20 04/08/24 History Q-10) ketoconazole 2 % topical cream 1 appln topical BID PRN Skin 07/12/20 04/08/24 History Irritation Oxygen Home [id number] 09/29/21 03/17/24 History triamcinolone acetonide 55 mcg 2 spray intranasal QAM 09/29/21 04/08/24 History nasal spray aerosol (Nasacort) calcium carb-vit D3-minerals 600 1 tab PO BID 06/09/22 04/08/24 History mg calcium-400 unit tablet epinephrine 0.3 mg/0.3 mL 0.3 mg (0.3 mL) IM Q10M PRN 03/15/23 04/08/24 Rx injection, auto-injector (EpiPen anaphylaxis #2 ea 2-Zac) irbesartan 300 mg tablet 300 mg PO QAM 12/10/23 04/08/24 History latanoprost 0.005 % eye drops 1 drp OPB HS 12/10/23 04/08/24 History triamcinolone acetonide 0.1 % 1 applic topical UD PRN eczema 12/10/23 04/08/24 History topical ointment budesonide-formoterol HFA 80 2 inh inhalation BID #10.2 grams 12/24/23 04/08/24 Rx mcg-4.5 mcg/actuation aerosol inhaler (Symbicort) albuterol sulfate 90 mcg/actuation 2 puff inhalation Q6H PRN 01/07/24 04/08/24 Rx aerosol inhaler (ProAir HFA) shortness of breath or wheezing #18 grams ipratropium 0.5 mg-albuterol 3 mg 3 ml inhalation Q6H PRN shortness 01/07/24 04/08/24 Rx (2.5 mg base)/3 mL nebulization of breath or wheezing #90 mL soln carvedilol 6.25 mg tablet 6.25 mg PO BID #60 tabs 01/16/24 04/08/24 Rx sucralfate 1 gram tablet 1 g PO QID #120 tabs 01/28/24 04/08/24 Rx cyanocobalamin (vitamin B-12) 1,000 mcg PO QAM 02/13/24 04/08/24 History 1,000 mcg tablet (Vitamin B-12) omeprazole 20 mg capsule,delayed 20 mg PO BID #180 caps 02/27/24 04/08/24 Rx release antiarthritic combination no.2 900 900 mg PO BID Pain 03/17/24 04/08/24 History mg tablet (glucosamine-chondroitin) bumetanide 0.5 mg tablet 0.5 mg PO DAILY #30 tabs 03/17/24 04/08/24 Rx levothyroxine 125 mcg tablet 125 mcg PO QAM #90 tabs 03/17/24 04/08/24 Rx Past Med/Surg History Problem List Acute knee pain (Acute) Closed fracture of left patella (Acute) Fall (Acute) Left patella fracture Ambulatory dysfunction Fall Abdominal pain LVH (left ventricular hypertrophy) Asthma Diastolic heart failure Gastritis Cardiomyopathy Acute bronchitis Acute heart failure Sinusitis Acute bronchospasm Osteoarthritis of knees, bilateral Implantable loop recorder present Rotator cuff tear, left Rotator cuff tear, right Valvular heart disease Nocturnal hypoxemia Poorly-controlled hypertension (Acute) HTN (hypertension) (Chronic) Dyslipidemia (Acute) Hypothyroidism (Chronic) Osteopenia 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 PFTs (04/11) demonstrated moderate restriction without improvement after bronchodilators Asthma (Chronic) daily and rescue inh Hx of malignant neoplasm of female breast dx 2005, sx, chemo, and xrt; no longer has limb restriction Glaucoma Generalized osteoarthritis Allergic rhinitis Urinary incontinence (Acute) GERD (gastroesophageal reflux disease) (Chronic) Medical History CHF (congestive heart failure) recent issue 12/2023--pt states she has greatly improved Heart failure Persistent cough pt states she was diagnosed with asthma exacerbation and then CHF 12/2023--states has greatly improved On home oxygen therapy 2L @[facility] Cystocele with rectocele Hx of basal cell carcinoma Hx of squamous cell carcinoma Balance problem "related to my joints" [place] (hard of hearing) "has also been getting some type of pounding noise in her ear when it gets quiet" Shoulder problem bilateral-gets injections PVCs (premature ventricular contractions) hx-2022, had loop recorder placed and removed>confirmed w/loop recorder>f/u dr. avelar-but no longer needs to see Diaphragmatic paralysis lt side Headache, migraine stopped with menopause History of paroxysmal supraventricular tachycardia Scoliosis Surgical History History of esophagogastroduodenoscopy (EGD) Hx of colonoscopy Hx of basal cell carcinoma excision Hx of squamous cell carcinoma excision History of loop recorder placed and removed 10/2023 History of tubal ligation History of hysterectomy with bilateral oophorectomy for uterine prolapse, concurrent pelvic floor repair History of tonsillectomy and adenoidectomy History of Mohs micrographic surgery for skin cancer nose History of mastectomy modified radical mastectomy right breast History of arthroscopy of knee with lysis of adhesions History of cholecystectomy 1990s Family History Grandmother (Maternal) Breast cancer Father Myocardial infarction Coronary heart disease Cardiac disorder Cancer Brother Myocardial infarction Deep vein thrombosis Cardiac disorder Hypertension Mother Coronary heart disease Cardiac disorder Hypertension Cancer Denies family history of Ovarian cancer Prostate cancer Lung cancer Colorectal cancer Stroke Social History Smoking Status: Never smoker Second Hand Exposure: Yes (previous years not now); Do You Dip or Chew Tobacco: No; Hx Alcohol Use: Yes (occasional) Alcohol type: wine Alcohol Intake Frequency: Monthly or Less Hx Substance Use: No Preferred Language: Beninese Communication Ability: Effective Visual Impairment: Limited Hearing Ability: Hard of Hearing Nail Puller Required: No Beliefs That Will Affect Care: None marital status: Current Living Situation: Spouse current occupational status: retired How many Children do You have: 3 Other Information That Helps Us Care for You: No Feels Safe at Home: Yes Safety Concerns: Feels Safe At This Time Childhood Exposure to Second-Hand Smoke: Yes caffeine: Yes (drinks half caff and half decaf) Dental Care, Regularly: Yes Physical Activity Frequency: 1-2 Times per Week Physical Activity Frequency Comment: 2-3 times a week in pool Seatbelt Use: always Sunscreen Use: Yes (when she gardens ) Assistive Devices: Glasses Review of Systems All systems reviewed & are unremarkable except as noted in HPI & below. Physical Exam On physical examination of the left knee, the knee immobilizer is in place. She is unable to do a straight leg raise. She is active dorsiflexion plantarflexion of her left ankle.. Constitutional WD/WN, vitals as above Eyes PERRL, conjunctivae normal, anicteric sclerae ENMT external ear and nose normal, oropharynx normal Neck trachea midline, no thyromegaly Respiratory normal respiratory effort Cardiovascular RRR, no murmur, no edema Gastrointestinal (Abdomen) normal bowel sounds, soft, nontender, no hepatosplenomegaly Psychiatric A+Ox3, euthymic affect Results & Data Results & Data Laboratory Results . Diagnostic Findings X-rays of the left knee do show a very minimally displaced transverse fracture of the left patella.. PG Care Time/CCT Total # of Minutes Spent Total Time Spent with Patient: Total time spent is greater than 50% in coordination of care (as documented) at patient's floor/unit and/or counseling patient: Coding Level of Care Code 09456 IN/OBS CONSULT LVL 4,60M Diagnoses Closed fracture of left patella S82.002A Encounter type: initial encounter Fracture alignment: displaced Fracture morphology: unspecified fracture morphology (1) Closed fracture of left patella Encounter type: initial encounter Fracture alignment: displaced Fracture morphology: unspecified fracture morphology Qualified Code(s): S82.002A - Unspecified fracture of left patella, initial encounter for closed fracture
[2024-04-09 07:50] LABS: Basophils # (auto) 0.02 K/uL (0.00-0.20); Basophils % (auto) 0.2 %; Hematocrit (blood only) 35.3 % (37.0-47.0); Hemoglobin 11.8 g/dl (12.0-16.0); Immature Granulocytes # (auto) 0.07 K/uL (0.01-0.20); Immature Granulocytes % (auto) 0.6 %; Lymphocytes # (auto) 0.87 K/uL (1.20-3.40); Lymphocytes % (auto) 7.5 %; Mean Corpuscular Hemoglobin 30.1 pg (25.0-34.0); Mean Corpuscular Hgb Conc 33.4 g/dL (32.0-36.0); Mean Corpuscular Volume 90.1 fL (80.0-100.0); Mean Platelet Volume 10.8 fL (9.4-12.4); Monocytes # (auto) 1.46 K/uL (0.11-0.59); Monocytes % (auto) 12.5 %; Neutrophils # (auto) 9.25 K/uL (1.40-6.50); Neutrophils % (auto) 79.2 %; Platelet Count 186 K/uL (130-400); RDW Standard Deviation 45.9 fL (36.4-46.3); Red Blood Count 3.92 M/uL (4.20-5.40); White Blood Count 11.67 K/ul (4.8-10.8)
[2024-04-09 08:30] LABS: Calcium 9.2 mg/dl (8.6-10.3); Magnesium 1.8 mg/dl (1.7-2.4); Potassium 4.3 mmol/L (3.5-5.1)
[2024-04-09 08:36] LABS: BUN Creatinine Ratio 25.7 (10-20); Est GFR (African American) 88.1 ml/min
--- NOTE | 2024-04-09 09:02 | Hospitalist Progress Note ---
Date of Service April 09, 2024 Assessment & Plan (1) Left patella fracture: Plan: 79yo with reports of mechanical ground level fall 04/07 afternoon after tripping on a hose while brining groceries into her home. No head trauma/loss of consciousness or prodromal symptoms reported, not on anticoagulation Imaging noting acute comminuted and mildly displaced intra-articular patellar fracture Orthopedics consulted, seen by Dr Tejeda this morning - plans to see in office in 1 week for repeat imaging. If remains unchanged then plans for continued conservative treatment but if any separation or distraction of the fracture then will likely require surgical fixation - to continue knee immobilizer and WB as tolerated for 6 wks. Instructions in dc summary per ortho Pain control, antiemetics as needed Added colace BID, miralax daily. +BS on exam/passing flatus and had been moving bowels but worried about getting backed up WBC trending down on repeat, 13.2k--> 11.6k. Has been afebrile. ?elevation 2nd to fall/stress from fracture. CXR without acute process. No urinary symptoms reported but will add ua/cx if indicated PT/OT consults, PT note in and recs for rehab, CM following and referrals sent DVT proph: adding lovenox SQ while inpatient Of note, Na 128 on AM labs, not symptomatic from such. Added urine osm, will also check TSH w/ AM labs given prior elevations earlier this year - encouraged PO intake with solutes rather than free water. On 1800cc fluid restriction but can consider removing if improved on repeat labs - is on bumex 0.5mg daily, consider holding this as well as appears slightly dehydrated on exam Monitor labs on repeat (2) Ambulatory dysfunction: Plan: 2nd to fall/patellar fracture as above. therapy evals/rehab planned at discharge (3) Hyponatremia: Plan: as above appears has been low on labs earlier this year as well Na 135 on admission --> 128 on repeat check serum osm, repeat labs this afternoon but has been asymptomatic/no lightheaded/dizziness. Not on any SSRI but is on bumex for diuretics Encourage PO intake w/ solutes/limit free water. ?uncontrolled pain (reports pain better today), ?polydipsia (does report drinks lots of water at home to prevent constiaption) will hold AM bumex for now/monitor labs on repeat this afternoon, check TSH w/ AM labs (4) HTN (hypertension): Plan: -Stable 106/54 -Continue Bumex, Carvedilol, Irbesartan --> placing bumex on hold for now for AM (got dose 04/08) (5) Asthma: Plan: stable on room air at present and to continue incentive spirometer continue home meds (6) Fall: Plan: as above (7) Nocturnal hypoxemia: Plan: -HS O2 ordered Plan continued inpatient stay, therapy evals for rehab and CM notified/referrals sent as clear from ortho for dc to rehab but further work-up for hyponatremia as above f/u hyponatremia Admission and Anticipated Discharge Date Admission Date: April 08, 2024 Supervising Physician Co-Signing Physician Notes The patient was not seen by me. The chart was reviewed. Case discussed with MOOSE Moise. Agree with assessment and plan Subjective Eval this afternoon, resting in bed, immobilizer in place. Recalls being seen by Dr Tejeda this morning and plans for repeat imaging in 1 week to see if healing appropriately or will need surgery. She reports painful with therapy but went better than she expected. She would like the fluid restriction removed- discussed will repeat labs but does appear dehydrated. Typically needs lots of fluids to have bowel movement along with fruits/veggit and fiber and is passing some more flatus today but no BM and wanting bowel regimen and will add. No fever/chills, chest pain, shortness of breath, nausea/vomiting at this time. No lightheaded/dizziness with standing with therapy and will repeat labs and if Na improved/stable can remove restriction but discussed avoiding free water and including more gatorade/powerade for electrolyte replacement/hydration. CM to follow as therapy recs for acute short term rehab at this time/patient agreeable. Physical Exam Physical Exam: General: 79yo female sitting up in bed, NAD, appears comfortable Head atraumatic, normocephalic, slightly dry mm, trachea midline Resp: even/unlabored, no significant w/c/r, on room air CV: RRR, faint murmur, no pitting edema/calf tenderness GI: +BS/slightly slow but present throughout, slight distension but no overt tenderness/guarding MSK/Neuro: immobilizer to LEFT knee in place, sensation intact, toes mobile, pulses palpable Psych: AOx3, cooperative with exam Results & Data Results & Data Vital Signs (Past 12 Hours) Vital Signs Temp Pulse Pulse Pulse Resp BP Pulse Ox 04/09/24 07:29 36.4 C 90 18 106/69 91 04/09/24 03:23 91 H 130/69 04/08/24 21:59 92 H 99/60 L O2 Del Method 04/09/24 07:29 Room Air 04/09/24 03:23 04/08/24 21:59 Laboratory Results 04/09/24 04/09/24 Range/Units 09:16 06:36 WBC 11.67 H (4.8-10.8) K/ul RBC 3.92 L (4.20-5.40) M/uL Hgb 11.8 L (12.0-16.0) g/dl Hct 35.3 L (37.0-47.0) % MCV 90.1 (80.0-100.0) fL MCH 30.1 (25.0-34.0) pg MCHC 33.4 (32.0-36.0) g/dL RDW Std Deviation 45.9 (36.4-46.3) fL RDW Coeff of Patrice 14.0 (11.5-14.5) % Plt Count 186 (130-400) K/uL MPV 10.8 (9.4-12.4) fL Immature Gran % (Auto) 0.6 % Neut % (Auto) 79.2 % Lymph % (Auto) 7.5 % Loving % (Auto) 12.5 % Eos % (Auto) 0.0 % Baso % (Auto) 0.2 % Neut # (Auto) 9.25 H (1.40-6.50) K/uL Lymph # (Auto) 0.87 L (1.20-3.40) K/uL Loving # (Auto) 1.46 H (0.11-0.59) K/uL Eos # (Auto) 0.00 (0.00-0.50) K/uL Baso # (Auto) 0.02 (0.00-0.20) K/uL Immature Gran # (Auto) 0.07 (0.01-0.20) K/uL Sodium 128 L (136-145) mmol/L Potassium 4.3 (3.5-5.1) mmol/L Chloride 96 L (98-107) mmol/L Carbon Dioxide 24 (21-32) mmol/L Anion Gap 8 (3-11) BUN 19 (6-23) mg/dl Creatinine 0.74 (0.6-1.2) mg/dl Est Cr Clr Drug Dosing 63.0 ml/min Est GFR ( Amer) 88.1 ml/min Est GFR (Non-Af Amer) 76.0 ml/min BUN/Creatinine Ratio 25.7 H (10-20) Glucose 140 H (70-99(Fasting)) mg/dl Osmolality 276 L (280-300) mOsm/kg Calcium 9.2 (8.6-10.3) mg/dl Magnesium 1.8 (1.7-2.4) mg/dl Diagnostic Findings Chest X-Ray 04/08/24 12:20 SINGLE VIEW CHEST CLINICAL HISTORY: Fall. FINDINGS: An AP, portable, supine chest radiograph is compared to chest x-ray and chest CT dated 01/17/2024. The heart is enlarged. The pulmonary vasculature is noncongested. Chronic interstitial thickening is similar to previous. There is chronic elevation of the left hemidiaphragm with left basilar atelectasis. No airspace consolidation or large pleural effusion is identified. No pneumothorax is seen. The skeletal structures are osteopenic. The bony thorax is grossly intact. IMPRESSION: Cardiomegaly with no acute cardiopulmonary abnormality identified. ACT 112: Negative or not required by law. Electronically signed by: Darrick Dejesus M.D. 04/08/2024 2:49 PM PG Care Time/CCT Total # of Minutes Spent Total Time Spent with Patient: Total time spent is greater than 50% in coordination of care (as documented) at patient's floor/unit and/or counseling patient: Coding Level of Care Code 07697 SUB INP/OBS CARE 3/50MIN Diagnoses Left patella fracture S82.002A Ambulatory dysfunction R26.2 Hyponatremia E87.1 Essential hypertension I10 Hypertension type: essential hypertension Asthma J45.909 Fall W19.XXXA Nocturnal hypoxemia G47.34 (4) HTN (hypertension) Hypertension type: essential hypertension Qualified Code(s): I10 - Essential (primary) hypertension
[2024-04-09] MEDS: CETIRIZINE HCL 10 MG TABLET PO SCH (09:09)
[2024-04-09] MEDS: BUMETANIDE 1 MG TAB PO SCH (09:11)
[2024-04-09] MEDS: FLUTICASONE PROPIONATE NA SPR 16 GM BTL NAE SCH (09:11)
[2024-04-09] MEDS: LOSARTAN POTASSIUM 50 MG TAB PO SCH (09:11)
[2024-04-09] MEDS: FLUTICASONE/VILANTEROL 100/25MCG 14 PUFFS/INHALER INH SCH (09:11)
[2024-04-09] MEDS: HYDROCODONE/ACETAMOPHEN 5/325MG TAB PO PRN (09:18)
[2024-04-09] MEDS: POLYETHYLENE (MIRALAX) 17 GM PACK PO SCH (12:59)
[2024-04-09] MEDS: DOCUSATE SODIUM 100 MG CAP PO SCH (12:59)
[2024-04-09] MEDS: ACETAMINOPHEN 325 MG TAB PO PRN (12:59)
[2024-04-09 14:06] LABS: BUN Creatinine Ratio 28.4 (10-20); Calcium 9.1 mg/dl (8.6-10.3); Est GFR (African American) 88.1 ml/min; Potassium 3.9 mmol/L (3.5-5.1)
[2024-04-09] MEDS: ENOXAPARIN INJ 40 MG/0.4 ML SYR SQ SCH (15:11)
[2024-04-09 20:08] LABS: Appearance Urine Clear (Clear); Bacteria Urine Automated None Seen (None Seen); Bilirubin Urine Negative (Negative); Blood Urine Negative (Negative); Cast Urine Automated 0-2 /lpf (0-2); Color Urine Yellow; Epithelial Cell Urine Auto 0-2 /hpf (0-2); Glucose Urine UA Negative (Negative); Ketones Urine Negative (Negative); Leukocyte Esterase Urine Negative (Negative); Nitrite Urine Negative (Negative); Protein Urine Trace (Negative); RBC Urine Automated 0-2 /hpf (0-2); Specific Gravity Urine 1.015 (1.000-1.030); Urobilinogen Urine Negative (Negative); WBC Urine Automated 0-5 /hpf (0-5)
[2024-04-09] MEDS: MAGNESIUM OXIDE 400 MG TAB PO SCH (21:01)
[2024-04-09] MEDS: LATANOPROST 0.005% OP SOLN 2.5 ML BTL OPB SCH (21:02)
[2024-04-10 07:49] LABS: Basophils # (auto) 0.01 K/uL (0.00-0.20); Basophils % (auto) 0.1 %; Eosinophils # (auto) 0.01 K/uL (0.00-0.50); Eosinophils % (auto) 0.1 %; Hematocrit (blood only) 32.3 % (37.0-47.0); Hemoglobin 10.6 g/dl (12.0-16.0); Immature Granulocytes # (auto) 0.05 K/uL (0.01-0.20); Immature Granulocytes % (auto) 0.5 %; Lymphocytes # (auto) 0.64 K/uL (1.20-3.40); Mean Corpuscular Hemoglobin 29.5 pg (25.0-34.0); Mean Corpuscular Hgb Conc 32.8 g/dL (32.0-36.0); Mean Platelet Volume 10.5 fL (9.4-12.4); Monocytes # (auto) 0.96 K/uL (0.11-0.59); Monocytes % (auto) 10.5 %; Neutrophils # (auto) 7.45 K/uL (1.40-6.50); Neutrophils % (auto) 81.8 %; Platelet Count 206 K/uL (130-400); RDW Coefficient of Variation 13.9 % (11.5-14.5); RDW Standard Deviation 45.2 fL (36.4-46.3); Red Blood Count 3.59 M/uL (4.20-5.40); White Blood Count 9.12 K/ul (4.8-10.8)
[2024-04-10 08:09] LABS: BUN Creatinine Ratio 24.6 (10-20); Calcium 8.7 mg/dl (8.6-10.3); Creatinine Clr Calc Pharmacy 71.7 ml/min; Est GFR (African American) 96.5 ml/min; Est GFR (Non-African American) 83.3 ml/min; Magnesium 1.8 mg/dl (1.7-2.4); Potassium 3.9 mmol/L (3.5-5.1)
[2024-04-10 08:24] LABS: Thyroid Stimulating Hormone 7.35 uIu/ml (0.300-4.500)
[2024-04-10 08:59] LABS: T4 Free Thyroxine 1.11 ng/dl (0.61-1.60)
--- NOTE | 2024-04-10 18:41 | Discharge Summary ---
Date of Service April 10, 2024 Admission HPI Per Admitting Provider Luciana is an 79 year old female with a PMH significant for Asthma, nocturnal hypoxemia, HFpEF, Cardiomyopathy, hypothyroidism, HTN, gastritis, who presented to the [facility] ED on 04/08/24 with complaints of ongoing left knee/left hip pain and ambulatory dysfunction since sustaining a ground level fall on 04/07/24. She remained stable in the ED. Labs were significant for a leukocytosis of 13 with neutrophil predominance of 10. Xray of the left knee was read as Acute comminuted and mildly displaced intra-articular patellar fracture. Xray of the BL hips and the left femur were negative for acute trauma to the hips, pelvis, or left femur. Prior to admission the patient was given 1gm IV Acetaminophen and a total of 75 mcg IV fentanyl. At the time of the exam the patient was lying in bed in no acute distress with her bedside, history was obtained from both. Had been in her normal state of health on 04/07. Was brining groceries into their home when her left foot caught their hose in the driveway, causing her to lose her balance and fall forward. She landed directly on her left knee, did not hit her head or lose consciousness. Denies prodromal symptoms such as lightheadedness, dizziness, chest pain, or heart palpitations. Was able to stand after the fall with the assistance of neighbors, but pain, swelling, and ambulatory dysfunction progressed overnight. Is unable to use crutches due to muscles loss int he left UE/chest from previous mastectomy. Pain is currently under control at rest, was recently severe while her knee immobilizer was being place. Denies recent fever, chills, chest pain, SOB, cough, headache, changes in vision, hearing, taste, smell, neck/pain pain, RLE pain, nausea/vomiting, abd pain, dysuria, hematuria, melena, or diarrhea. Is a conditional code; would not want CPR or defibrillation in the event of cardiac arrest. Would want a trial of intubation in the event of respiratory failure. is her POA. Principal Diagnosis Left patellar fracture, hyponatremia, chronic diastolic heart failure related to valvular disease Discharge Exam PHYSICAL EXAMINATION Last 24h vital signs reviewed, see documentation in flowsheet General: comfortable appearing, no distress HEENT: Normocephalic, atraumatic, pupils round and equal, sclerae anicteric, no conjunctival injection, moist mucus membranes Lungs: Normal respiratory effort. Clear to auscultation bilaterally. No RRW Heart: Regular rate and rhythm, no murmurs. No JVD Abdomen: Soft, nontender, nondistended. Bowel sounds present. Extremities: Warm, dry, well-perfused. No extremity edema. Neuro: Alert and oriented x 4, face symmetric, left leg and knee immobilizer splint Psych: Normal affect and behavior Discharge Data Allergies Allergy/AdvReac Type Severity Reaction Status Date / Time hornet venom Allergy Severe ANAPHYLAXIS Verified 03/17/24 14:22 nalbuphine Allergy Severe "CAN'T Verified 03/17/24 14:22 BREATH" venom-honey bee Allergy Severe Anaphylaxis Verified 03/17/24 14:22 amoxicillin Allergy Intermediate VASCULITIS Verified 03/17/24 14:22 ampicillin Allergy Intermediate VASCULITIS Verified 03/17/24 14:22 clavulanic acid Allergy Intermediate VASCULITIS Verified 03/17/24 14:22 LEGS Iodinated Contrast Media Allergy Intermediate Hives Verified 03/17/24 14:22 Penicillins Allergy Intermediate VASCULITIS Verified 03/17/24 14:22 LEGS, AMOXIL-RASH latex Allergy Mild Rash Verified 03/17/24 14:22 amlodipine AdvReac Mild edema Verified 03/17/24 14:22 Consultations 04/08/24 11:59 ED Decision to Admit Stat 04/08/24 12:17 Consult Orthopedic Surgery Routine Ordered Studies Femur X-Ray 04/08/24 08:56 LEFT FEMUR 2 VIEWS CLINICAL HISTORY: Fall. Left leg injury. FINDINGS: AP and crosstable lateral views of the left femur are obtained. No prior studies are available for comparison at the time of dictation. The skeletal structures are osteopenic. There is no radiographic evidence of left femoral fracture. The visualized left hemipelvis appears intact. Mild arthritic change and joint space narrowing is seen in the left hip. Arthritic change is noted in the knee joint. There is a comminuted fracture through the mid-body of the patella with mildly displaced fragments. There is an associated knee joint effusion and overlying soft tissue edema. The soft tissues of the thigh are normal as imaged. IMPRESSION: 1. There is no radiographic evidence of left femoral fracture. 2. Comminuted fracture of the patella with associated joint effusion and overlying soft tissue swelling. Electronically signed by: Darrick Dejesus M.D. 04/08/2024 11:09 AM Hip/Pelvis X-Ray 04/08/24 08:56 XR hip LT 2V w pelvis CLINICAL HISTORY: knee pain, swelling, fall COMPARISON: CT of the abdomen and pelvis April 20, 2017. FINDINGS: Sacroiliac joints and symphysis pubis are intact. There are no fractures within the pelvis or hips. Moderate amount of stool within the rectum is present. No osseous lesions are identified. IMPRESSION: No fractures within the pelvis or hips. ACT 112: Negative or not required by law. Electronically signed by: José Cerda M.D. 04/08/2024 11:16 AM Knee X-Ray 04/08/24 08:56 XR knee LT 1 or 2V routine HISTORY: 79 years-old Female knee pain, swelling, fall COMPARISON: Left femur radiographs of same day TECHNIQUE: 3 views of the left knee FINDINGS: Acute comminuted intra-articular mid patellar fracture with distraction/displacement of the fracture fragments measuring up to 8 mm. Prepatellar soft tissue swelling with small to moderate joint effusion. Tricompartment osteoarthritis, moderate within the lateral patellofemoral compartment and severe within the medial compartment. IMPRESSION: Acute comminuted and mildly displaced intra-articular patellar fracture. ACT 112: Negative or not required by law. The above report was generated using voice recognition software. It may contain grammatical, syntax or spelling errors. Electronically signed by: Dane Pope M.D. 04/08/2024 11:16 AM Chest X-Ray 04/08/24 12:20 SINGLE VIEW CHEST CLINICAL HISTORY: Fall. FINDINGS: An AP, portable, supine chest radiograph is compared to chest x-ray and chest CT dated 01/17/2024. The heart is enlarged. The pulmonary vasculature is noncongested. Chronic interstitial thickening is similar to previous. There is chronic elevation of the left hemidiaphragm with left basilar atelectasis. No airspace consolidation or large pleural effusion is identified. No pneumothorax is seen. The skeletal structures are osteopenic. The bony thorax is grossly intact. IMPRESSION: Cardiomegaly with no acute cardiopulmonary abnormality identified. ACT 112: Negative or not required by law. Electronically signed by: Darrick Dejesus M.D. 04/08/2024 2:49 PM 04/10/24 06:49 04/10/24 06:49 Hospital Course (1) Left patella fracture: 79yo with reports of mechanical ground level fall 04/07 afternoon after tripping on a hose while brining groceries into her home. No head trauma/loss of consciousness or prodromal symptoms reported, not on anticoagulation Imaging noting acute comminuted and mildly displaced intra-articular patellar fracture Orthopedics consulted, seen by Dr Tejeda - plans to see in office in 1 week for repeat imaging. If remains unchanged then plans for continued conservative treatment but if any separation or distraction of the fracture then will likely require surgical fixation - to continue knee immobilizer for 6 wks, may weight-bear as tolerated with immobilizer. - DVT prophylaxis probably a good idea while in rehab - has been on enoxaparin Pain control, antiemetics as needed Added colace BID, miralax daily. +BS on exam/passing flatus and had been moving bowels but worried about getting backed up leukocytosis 13.2k-->9k. Has been afebrile. probably was related to stress response from the fall and fracture. Urinalysis was negative (2) Ambulatory dysfunction: 2nd to fall/patellar fracture as above. therapy evals/rehab planned at discharge (3) Hyponatremia: Na 135 on admission --> 128, 127 --> 129. Has remained asymptomatic. Had moderate hyponatremia earlier this year when she had viral resp infection and CHF exacerbation. On bumex. Not on SSRI or other culprit meds. TSH 7 with normal free T4. Osms mildly low at 276 (was on diuretic) Bumex was held 04/09, 04/10 On my exam 04/10 she looks euvolemic to mildly volume depleted. -change bumex to 0.5 mg every other day and 0.5 mg daily PRN cough/dyspnea/edema/weight gain -recheck sodium Saturday 04/14 -normal salt diet -bid protein supplement such as boost/ensure will also help with sodium and water balance can work up more formally for SIADH if not resolved with these measures (would need to check urine sodium >48h after holding bumex. If Maria Isabel elevated would confirm SIADH) (4) HTN (hypertension): -Continue Carvedilol, Irbesartan (5) Asthma: stable on room air continue home meds (6) Fall: as above (7) Nocturnal hypoxemia: -HS O2 ordered, uses 2L chronically Total Time Total Time Spent Total Time Spent (In Minutes): I personally spent: 40 minutes today on clinical care activities including: reviewing chart notes and vital signs reviewing labs discussion with direct care counselor examining and counseling the patient writing discharge ordersorders documentation Discharge Plan Discharge Items Patient Disposition: Transfer Halfway Fac Reason For Visit: fall Discharge Diagnosis: left patellar fracture, hyponatremia, chronic diastolic heart failure Activity: Per Instructions section Weightbearing: Full weightbearing Weightbearing Comment: full weightbearing with L knee immobilizer brace Non-emergency contact: Primary Care Provider and Surgeon Call non-emergency contact if: you have any medication questions and your symptoms worsen Follow-up/Referrals: Danish Soriano MD [Primary Care Provider] - Ariel Tejeda DO [Physician] - Diet: Regular Addtl Attending Provider Instructions: Moderate hyponatremia - suspected to be related to diuretics, mild volume depletion -decreased bumex to 0.5 mg every other day and 0.5 mg daily PRN dyspnea/cough, increased edema, increase in weight of 3 pounds or more over 1-2 days or 5 pounds or more in a week -please check BMP on Saturday 04/14 -check weight 3x a week -follow up with [facility] cardiology Nocturnal hypoxemia - uses 2L nighttime supplemental oxygen Addtl Insights Strategist Provider Instructions: ORTHOPEDIC INSTRUCTIONS Activity Recommendations: Weightbearing as tolerated Stay in the L knee immobilizer brace at all times. Follow-Up Visit: Follow-up with Dr. Tejeda next week. Please call the office to set up an appointment for a time that works for you. We will get x-rays when you are seen in the office. If the x-rays show further distraction of the fracture then you may require surgical fixation. Pending Studies at Discharge: No Stand-Alone Forms: My [facility] [address] [employer] Skilled Items Patient informed of condition?: Yes DNR: Yes (prefers no chest compressions/CPR, trial of intubation okay for respiratory) Discharge Level of Care: Skilled Communicable Disease: No Discharge Prognosis: Improving Lines: None Urinary Catheter: No Medications and DC Order Prescriptions: New acetaminophen 325 mg Tablet 650 mg PO Q6H PRNQty: 0 0RF hydrocodone-acetaminophen 5-325 mg Tablet 1 tab PO Q4H PRN (Reason: pain) Qty: 10 0RF enoxaparin [Lovenox] 40 mg/0.4 mL Syringe 40 mg subcut Q24H Qty: 0 0RF bumetanide 1 mg Tablet See Rx Instructions .ROUTE .COMPLEX Qty: 0 0RF Rx Instructions: 0.5 mg every other day and 0.5 mg qAM PRN dyspnea/cough/edema/weight gain polyethylene glycol 3350 [Miralax] 17 gram Powder In Packet 17 g PO DAILY Qty: 0 0RF Continued epinephrine [EpiPen 2-Zac] 0.3 mg/0.3 mL auto-injector 0.3 mg IM Q10M PRN (Reason: anaphylaxis) Qty: 2 0RF budesonide-formoterol [Symbicort] 80-4.5 mcg/actuation HFA aerosol inhaler 2 inh INHALATION BID Qty: 10.2 11RF Rx Instructions: Give Generic omeprazole 20 mg capsule,delayed release(DR/EC) 20 mg PO BID Qty: 180 1RF magnesium 250 mg tablet 250 mg PO QPM cholecalciferol (vitamin D3) 1,000 unit capsule 1,000 units PO QAM Zyrtec 10 mg capsule 10 mg PO QAM coenzyme Q10 [Co Q-10] 100 mg capsule 100 mg PO BID ketoconazole 2 % cream 1 appln TOP BID PRN (Reason: Skin Irritation) triamcinolone acetonide [Nasacort] 55 mcg aerosol,spray 2 spray INTNAS QAM glucosamine-chondroitin 900 mg tablet 900 mg PO BID (DME) Oxygen Home Liters Per Minute See Rx Instructions .Route Rx Instructions: As directed- 2 liters @ bedtime via nasal cannula calcium carbonate-vit D3-min 600 mg calcium- 400 unit tablet 1 tab PO BID ipratropium-albuterol 0.5 mg-3 mg(2.5 mg base)/3 mL solution for nebulization 3 ml inhalation Q6H PRN (Reason: shortness of breath or wheezing) Qty: 90 1RF albuterol sulfate [ProAir HFA] 90 mcg/actuation HFA aerosol inhaler 2 puff INH Q6H PRN (Reason: shortness of breath or wheezing) Qty: 18 1RF levothyroxine 125 mcg tablet 125 mcg PO QAM Qty: 90 3RF sucralfate 1 gram tablet 1 g PO QID Qty: 120 2RF carvedilol 6.25 mg tablet 6.25 mg PO BID Qty: 60 2RF Rx Instructions: must administer with a meal/food latanoprost 0.005 % drops 1 drp OPB HS triamcinolone acetonide 0.1 % ointment 1 applic TOPICAL UD PRN (Reason: eczema) irbesartan 300 mg tablet 300 mg PO QAM Patient Comments: usually around 0400 cyanocobalamin (vitamin B-12) [Vitamin B-12] 1,000 mcg Tablet 1,000 mcg PO QAM Discontinued bumetanide 0.5 mg tablet 0.5 mg PO DAILY Qty: 30 11RF Rx Instructions: one half to one tab daily Discharge Orders: Discharge Order (Routine); Ordered 04/10/24 Ordered By: Conchita Pedro Admission Data Admit Date/Time: 04/08/24 11:50 Attending Provider: Conchita Pedro Admit Provider: Arnold Beard Primary Care Provider: Danish Soriano Other Providers: Arnold Beard; Arnold Mora; [facility]; Donald Galicia at [facility] Other Interventions: Discharge Summary Assessment (RN) Last Done: 04/10/24 14:55 Coding Level of Care Code 29185 INP/OBS DISCH >30 MIN Diagnoses Left patella fracture S82.002A Ambulatory dysfunction R26.2 Hyponatremia E87.1 Essential hypertension I10 Hypertension type: essential hypertension Asthma J45.909 Fall W19.XXXA Nocturnal hypoxemia G47.34
== END 2024-04-10 16:42 | DRG 543 ==
LOC: ED 07:54 → 3W 11:50 → SUATTDRO 11:50 → 3W 13:42